=== PATIENT | male | born 1960 | race Caucasian/White ===

== ENCOUNTER → 2016-03-11 | Outpatient (CLI) | payer OTHER ==
[~2016-03-11] MED LIST: BCTRO EXT; DIME1CAP2 PO; DXY100 PO; MULT-513 PO; NXM/40 PO
[2016-03-11 12:38] LABS: THYROID STIMULATING HORMONE 5.01 uIu/ml (0.300-4.500)
== END | disposition home or self-care (01) ==
LOC: C.LAB1850 11:39
PROVIDERS: ATTEND Internal Medicine
DX: R94.6 Abnormal results of thyroid function studies (principal)

== ENCOUNTER 2016-07-25 21:14 | Inpatient (IN) | payer OTHER ==
[~2016-07-25] VITALS: Ht 188 cm; Wt 107.2 kg
[~2016-07-25 21:14] MED LIST changes: -BCTRO EXT; -DXY100 PO
[2016-07-25 23:47] LABS: BUN/CREATININE RATIO 13.3 (10-20); CALCIUM 8.4 mg/dl (8.5-10.1); CREATININE 1.1 mg/dl (0.60-1.40); POTASSIUM 3.9 mmol/L (3.5-5.1)
[2016-07-25 23:57] LABS: MEAN CELL VOLUME 87.8 fL (80-100); MEAN CORPUSCULAR HEMOGLOBIN 30.2 pg (25-34); MEAN CORPUSCULAR HGB CONC 34.4 g/dl (32-36); MEAN PLATELET VOLUME 11.7 fL (7.4-10.4); PLATELET COUNT 65 K/uL (130-400); RED BLOOD COUNT 4.44 M/uL (4.7-6.1); WHITE BLOOD COUNT 1.34 K/uL (4.8-10.8)
[2016-07-25 23:58] LABS: COMPLETE YES; GIANT PLATELETS 2+; LYMPH ABS # 0.25 K/uL (1.2-3.4); LYMPHOCYTE % 18.3 %; NEUTROPHILS % 76.5 %; PLT ESTIMATE DECREASED; TOXIC GRANULATION 1+
[2016-07-26 00:13] LABS: URINE APPEARANCE CLEAR (CLEAR); URINE BILIRUBIN NEG (NEG); URINE COLOR DK YELLOW; URINE NITRITE NEG (NEG); URINE SPECIFIC GRAVITY 1.025 (1.000-1.030); UROBILINOGEN NEG (NEG)
[2016-07-26 00:13] LABS: LYME DISEASE AB IGG NEG (NEG); LYME DISEASE AB IGM NEG (NEG)
[2016-07-26 00:14] LABS: MANUAL MICROSCOPIC REQUIRED? NO; REVIEW REQ? NO
[2016-07-26] MEDS ORDERED: CEFEPIME IV 2,000 MG in DEXTROSE 5% 100ML 100 ML IV STA (00:26)
--- NOTE | 2016-07-26 01:58 | EMERGENCY ROOM VISIT NOTE ---
History Report prepared by Maribel: Dominique Reed Under the Supervision of: Dr. Phuc Hollingsworth M.D. First contact with patient: 22:29 Chief Complaint: FEVER Stated Complaint: FEVER,WEAK,HEADACHE History of Present Illness The patient is a 56 year old male who presents to the Emergency Room with complaints of persistent fever starting 3 days ago. His temperature was 102.5 degrees today. He has been taking ibuprofen for the past 2 days. He took some today at 1630. He is currently feeling better than he has for the past 2 days. He reports chills. He has pain in the back of his neck and a headache in the back of his head which also started 3 days ago. The headache is mild and constant. He normally does not get headaches. He denies any neck stiffness, SOB , cough, chest pain, abdominal pain, urinary symptoms, rash, numbness, or weakness. He notes that he has been working outside a lot. 3-4 months ago he had a tick bite which was very embedded into his skin. He has not noticed any rash. He has a history of MS. He is currently not on any steroids or medications for MS. He denies any history of UTI. Source of History: patient Onset: 3 days ago Position: other (global) Symptom Intensity: 102.5 F Quality: other (fever) Timing: other (persistent) Associated Symptoms: + chills, + headache, + neck pain, No cough, No chest pain, No SOB, No abdominal pain, No urinary symptoms, No weakness, No numbness, No rash Note: Pt denies neck stiffness. Review of Systems See HPI for pertinent positives & negatives. A total of 10 systems reviewed and were otherwise negative. Past Medical & Surgical Medical Problems: (1) Multiple sclerosis Family History No pertinent family history stated. Social History Smoking Status: Current Every Day Smoker Occupation Status: employed Current/Historical Medications Scheduled Multivitamins/Minerals (Mvi With Minerals), 1 TAB PO DAILY Scheduled PRN Esomeprazole Magnesium (Nexium), 40 MG PO QAM PRN for Indigestion Allergies Coded Allergies: No Known Drug Allergy (Verified Allergy, Unknown, NKDA, 07/25/16) Physical Exam Vital Signs Date Time Temp Pulse Resp B/P (MAP) Pulse Ox O2 Delivery O2 Flow Rate FiO2 07/26/16 00:49 74 18 108/57 93 Room Air 07/25/16 23:04 37.5 84 18 115/67 94 Room Air 07/25/16 21:17 36.9 105 20 124/74 95 Room Air Physical Exam Constitutional: Vital signs reviewed. Eyes: Pupils are equal round reactive to light. Conjunctiva are noninjected. ENT: Pharynx is clear without erythema or exudate. Mucous membranes are moist. Neck supple without meningeal signs. Respiratory: Clear to auscultation bilaterally. Breath sounds are equal bilaterally. Cardiovascular: Regular rate and rhythm. No rubs or gallops. GI: Soft, nondistended and nontender. Bowel sounds are present. Musculoskeletal: No peripheral edema. No lower extremity tenderness. No CVA tenderness. Integumentary: No cyanosis. Neurologic: The patient is awake and alert. Cranial nerves II-XII are intact. Motor is 5 out of 5 all extremities. Sensation is intact to light touch all extremities. Normal speech. No pronator drift. Negative Kernig's sign. Negative Brudzinski's sign. Psychiatric: Normal affect. Medical Decision & Procedures ER Provider Diagnostic Interpretation: X-ray results as stated below per interpretation by me: Chest X-ray: No acute cardiopulmonary process. No pneumonia. Laboratory Results 07/25/16 23:00 Red Blood Count 4.44, Mean Corpuscular Volume 87.8, Mean Corpuscular Hemoglobin 30.2, Mean Corpuscular Hemoglobin Concent 34.4, Mean Platelet Volume 11.7 07/25/16 23:00 Test 07/25/16 23:00 07/25/16 23:55 07/26/16 00:28 07/26/16 00:40 White Blood Count 1.34 K/uL (4.8-10.8) Red Blood Count 4.44 M/uL (4.7-6.1) Hemoglobin 13.4 g/dL (14.0-18.0) Hematocrit 39.0 % (42-52) Mean Corpuscular Volume 87.8 fL (80-100) Mean Corpuscular Hemoglobin 30.2 pg (25-34) Mean Corpuscular Hemoglobin Concent 34.4 g/dl (32-36) Platelet Count 65 K/uL (130-400) Mean Platelet Volume 11.7 fL (7.4-10.4) RDW Standard Deviation 40.4 fL (36.4-46.3) RDW Coefficient of Variation 12.5 % (11.5-14.5) Neutrophils % (Manual) 76.5 % Lymphocytes % (Manual) 18.3 % Monocytes % (Manual) 5.2 % Neutrophils # (Manual) 1.03 K/uL (1.4-6.5) Total Absolute Neutrophils 1.03 K/uL (1.4-6.5) Lymphocytes # (Manual) 0.25 K/uL (1.2-3.4) Total Absolute Lymphocytes 0.25 K/uL (1.2-3.4) Monocytes # (Manual) 0.07 K/uL (0.11-0.59) Toxic Granulation 1+ Platelet Estimate DECREASED Giant Platelets 2+ Anion Gap 9.0 mmol/L (3-11) Est Creatinine Clear Calc Drug Dose 97.8 ml/min Estimated GFR () 86.5 Estimated GFR (Non- 74.6 BUN/Creatinine Ratio 13.3 (10-20) Calcium Level 8.4 mg/dl (8.5-10.1) Total Bilirubin 0.7 mg/dl (0.2-1) Direct Bilirubin 0.2 mg/dl (0-0.2) Aspartate Amino Transf (AST/SGOT) 37 U/L (15-37) Alanine Aminotransferase (ALT/SGPT) 32 U/L (12-78) Alkaline Phosphatase 67 U/L (45-117) Total Protein 6.7 gm/dl (6.4-8.2) Albumin 3.3 gm/dl (3.4-5.0) Lyme Disease IgG Antibody NEG (NEG) Lyme Disease IgM Antibody NEG (NEG) Urine Color DK YELLOW Urine Appearance CLEAR (CLEAR) Urine pH 6.0 (4.5-7.5) Urine Specific [place] 1.025 (1.000-1.030) Urine Protein TRACE (NEG) Urine Glucose (UA) NEG (NEG) Urine Ketones TRACE (NEG) Urine Occult Blood NEG (NEG) Urine Nitrite NEG (NEG) Urine Bilirubin NEG (NEG) Urine Urobilinogen NEG (NEG) Urine Leukocyte Esterase NEG (NEG) Urine WBC (Auto) 1-5 /hpf (0-5) Urine RBC (Auto) 0-4 /hpf (0-4) Urine Hyaline Casts (Auto) 1-5 /lpf (0-5) Urine Epithelial Cells (Auto) 5-10 /lpf (0-5) Urine Bacteria (Auto) NEG (NEG) Bedside Lactic Acid Venous 0.59 mmol/L (0.90-1.70) Influenza Type A Antigen Neg for Influ A (NEG) Influenza Type B Antigen Neg for Influ B (NEG) Test 07/26/16 01:18 Laboratory results as reviewed by me. Medications Administered Medications (Trade) Dose Ordered Sig/Hossein Route Start Time Stop Time Status Last Admin Dose Admin Cefepime HCl 2000 mg/Dextrose 122.6 ml @ 200 mls/hr NOW STAT IV 07/26/16 00:26 07/26/16 01:02 DC 07/26/16 00:48 200 MLS/HR ED Course 2231: The patient was evaluated in room C9. A complete history and physical exam was performed. 2358: I reevaluated the patient. I updated him on the test results so far. The urine dip was negative. 0019: I reevaluated the patient. He states he feels fine. I updated him on the results. He would not like to stay in the hospital. 0026: Cefepime HCl 2000 mg/Dextrose 122.6 ml @ 200 mls/hr IV. 0035: I reevaluated the patient. I discussed the results and treatment with him and his . They verbalized understanding and agreement. He has agreed to stay for further evaluation. 0115: I discussed the patient's case with Dr. Oscar, [facility] [place] hospitalist group. The patient will be evaluated for further management. Medical Decision This is a 56-year-old male who presents with fever and headache. Differential diagnosis includes sepsis, bacteremia, Lyme disease, meningitis, pneumonia, UTI , viral syndrome. I did perform a limited focused review of portions of the patient's old chart on the electronic medical record. The patient has had no recent pertinent visits to this hospital. Medication Reconciliation: I attest that I have personally reviewed the patient' s current medication list. Blood Pressure Screening: Patient was found to have an elevated blood pressure and was referred to their primary doctor for recheck and further treatment. I did evaluate the patient as noted above. The patient is presenting with a fever since Monday. He has also had a headache as well. On my examination he is neurologically intact and has no meningeal signs. He does state that he is feeling better overall today after taking Motrin. IV access was established. I did order and personally review the patient's urinalysis and chest x-ray as described above. He does not have a UTI or pneumonia. I did order and review the patient's blood work as noted in the electronic medical record. His lactic acid is negative. His white blood cell count and platelet count is low. He is neutropenic with an ANC of approximately thousand. His Lyme test was negative. I did discuss the test results with the patient and his . I did recommend hospitalization for further evaluation of his symptoms and IV antibiotics. I did treat him with cefepime IV. I did send a rapid flu test which is negative. I did send testing for ehrlichiosis and Anaplasma due to his history of tick bite. I did discuss the case with the hospitalist and assistant case manager. Consults Time Called: 0045 Consulting Physician: Dr. Oscar, [facility] [place] hospitalist group Returned Call: 0115 I discussed the patient's case with him. The patient will be evaluated for further management. Impression Primary Impression: Neutropenic fever Additional Impression: Thrombocytopenia Scribe Attestation The scribe's documentation has been prepared under my direct and personally reviewed by me in its entirety. I confirm that the note above accurately reflects all work, treatment, procedures, and medical decision making performed by me. Departure Information Dispostion Being Evaluated By Hospitalist Referrals RV. Beaver MD (PCP) Patient Instructions My [facility] Problem Qualifiers
[2016-07-26] MEDS ORDERED: ONDANSETRON INJ 2 MG/ML 2 ML VIAL IV PRN (03:30)
[2016-07-26] MEDS ORDERED: ACETAMINOPHEN 325 MG TAB PO PRN (03:30)
[2016-07-26] MEDS ORDERED: MAGNESIUM HYDROXIDE SUSP 30 ML UDC PO PRN (03:30)
--- NOTE | 2016-07-26 03:37 | History and Physical ---
History & Physical Date & Time of Service: Jul 26, 2016 at 03:35 Chief Complaint: Fever,Weak,Headache Primary Care Physician: RV. Beaver MD History of Present Illness Source: patient, spouse 56 y/o M with PMH of MS and hypothyroidism presented to the ER with c/o persistent fevers with chills which started about 3 days ago. complains of fevers with chills and sweats and had been suing ibuprofen intermittently. complains of a mild headache in the left frontal side and neck and back pain which he thinks is chronic . had some photophobia and lightheadedness which is now resolved denies any N/V/Diarrhea/abdominal pain/urinary complaints/rashes/sore throat or URTI s/s denies any bleeding from gums/melena/BRBPR had a tick bite about 4 months ago and had an engorged tick attached for about 3 -4 days. denied any rashes/joint pain. no recent travelling, exposure to sick contacts. 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 he recently stopped medications for MS. also concerned at he was stationed at [employer] and was potentially exposed to contaminated water. Past Medical/Surgical History Medical Problems: (1) Multiple sclerosis Status: Chronic Social History Smoking Status: Current Every Day Smoker Occupational Status: employed Multi-Drug Resistant Organisms History of MDRO: No Allergies Coded Allergies: No Known Drug Allergy (Verified Allergy, Unknown, NKDA, 07/25/16) Home Medications Scheduled Multivitamins/Minerals (Mvi With Minerals), 1 TAB PO DAILY Scheduled PRN Esomeprazole Magnesium (Nexium), 40 MG PO QAM PRN for Indigestion Review of Systems Constitutional: + fever, + chills, + sweats Eyes: No worsening of vision ENT: No hearing loss Respiratory: No cough, No sputum, No wheezing, No shortness of breath, No dyspnea on exertion Cardiovascular: No chest pain Abdomen: No pain, No nausea, No vomiting, No diarrhea, No GI bleeding Genitourinary - Male: No hematuria, No dysuria, No urinary frequency Neurologic: No memory loss Psychiatric: No depression symptoms Endocrine: No fatigue Hematologic / Lymphatic: No abnormal bleeding/bruising Integumentary: No rash Physical Exam Vital Signs Date Time Temp Pulse Resp B/P (MAP) Pulse Ox O2 Delivery O2 Flow Rate FiO2 07/26/16 02:30 77 18 121/70 95 Room Air 07/26/16 00:49 74 18 108/57 93 Room Air 07/25/16 23:04 37.5 84 18 115/67 94 Room Air 07/25/16 21:17 36.9 105 20 124/74 95 Room Air General Appearance: WD/WN, no apparent distress Head: normocephalic Eyes: normal inspection ENT: hearing grossly normal Neck: supple Respiratory/Chest: chest non-tender, lungs clear, normal breath sounds, no respiratory distress, no accessory muscle use Cardiovascular: regular rate, rhythm Abdomen/GI: normal bowel sounds, non tender, soft Extremities/Musculoskelatal: no calf tenderness, no pedal edema Neurologic/Psych: alert, normal mood/affect, oriented x 3 Skin: normal color, no rash Diagnostics Laboratory Results Results Past 24 Hours Test 07/25/16 23:00 07/25/16 23:55 07/26/16 00:28 07/26/16 00:40 Range/Units White Blood Count 1.34 4.8-10.8 K/uL Red Blood Count 4.44 4.7-6.1 M/uL Hemoglobin 13.4 14.0-18.0 g/dL Hematocrit 39.0 42-52 % Mean Corpuscular Volume 87.8 80-100 fL Mean Corpuscular Hemoglobin 30.2 25-34 pg Mean Corpuscular Hemoglobin Concent 34.4 32-36 g/dl Platelet Count 65 130-400 K/uL Mean Platelet Volume 11.7 7.4-10.4 fL RDW Standard Deviation 40.4 36.4-46.3 fL RDW Coefficient of Variation 12.5 11.5-14.5 % Neutrophils % (Manual) 76.5 % Lymphocytes % (Manual) 18.3 % Monocytes % (Manual) 5.2 % Neutrophils # (Manual) 1.03 1.4-6.5 K/uL Total Absolute Neutrophils 1.03 1.4-6.5 K/uL Lymphocytes # (Manual) 0.25 1.2-3.4 K/uL Total Absolute Lymphocytes 0.25 1.2-3.4 K/uL Monocytes # (Manual) 0.07 0.11-0.59 K/uL Toxic Granulation 1+ Platelet Estimate DECREASED Giant Platelets 2+ Sodium Level 140 136-145 mmol/L Potassium Level 3.9 3.5-5.1 mmol/L Chloride Level 104 98-107 mmol/L Carbon Dioxide Level 27 21-32 mmol/L Anion Gap 9.0 3-11 mmol/L Blood Urea Nitrogen 15 7-18 mg/dl Creatinine 1.10 0.60-1.40 mg/dl Est Creatinine Clear Calc Drug Dose 97.8 ml/min Estimated GFR () 86.5 Estimated GFR (Non- 74.6 BUN/Creatinine Ratio 13.3 10-20 Random Glucose 121 70-99 mg/dl Calcium Level 8.4 8.5-10.1 mg/dl Total Bilirubin 0.7 0.2-1 mg/dl Direct Bilirubin 0.2 0-0.2 mg/dl Aspartate Amino Transf (AST/SGOT) 37 15-37 U/L Alanine Aminotransferase (ALT/SGPT) 32 12-78 U/L Alkaline Phosphatase 67 45-117 U/L Total Protein 6.7 6.4-8.2 gm/dl Albumin 3.3 3.4-5.0 gm/dl Lyme Disease IgG Antibody NEG NEG Lyme Disease IgM Antibody NEG NEG Urine Color DK YELLOW Urine Appearance CLEAR CLEAR Urine pH 6.0 4.5-7.5 Urine Specific [place] 1.025 1.000-1.030 Urine Protein TRACE NEG Urine Glucose (UA) NEG NEG Urine Ketones TRACE NEG Urine Occult Blood NEG NEG Urine Nitrite NEG NEG Urine Bilirubin NEG NEG Urine Urobilinogen NEG NEG Urine Leukocyte Esterase NEG NEG Urine WBC (Auto) 1-5 0-5 /hpf Urine RBC (Auto) 0-4 0-4 /hpf Urine Hyaline Casts (Auto) 1-5 0-5 /lpf Urine Epithelial Cells (Auto) 5-10 0-5 /lpf Urine Bacteria (Auto) NEG NEG Bedside Lactic Acid Venous 0.59 0.90-1.70 mmol/L Influenza Type A Antigen Neg for Influ A NEG Influenza Type B Antigen Neg for Influ B NEG Test 07/26/16 01:18 Range/Units Microbiology Results 07/25/16 Blood Culture, Received Pending 07/25/16 Blood Culture, Received Pending Impression Assessment and Plan 56 y/o M with PMH of MS and hypothyroidism presented to the ER with c/o persistent fevers with chills which started about 3 days ago. Was found to have WBC count of 1.34 and thrombocytopenia with a platelet count of 65. Neutropenic fever: - WBC count of 1.34, ANC 1.03 - Blood cultures, urine cultures pending - Lactic acid at 0.59 - Lyme serology, influenza negative - Ehrlichiosis, anaplasmosis, EBV, parvovirus B19 serology pending - Received cefepime 2 g in the ER, continue cefepime 2 g every 8 hours - Infectious disease consult - Neutropenic precautions Thrombocytopenia with neutropenia: Bone marrow suppression secondary to infection versus multiple sclerosis drugs versus malignancy - Platelet count at 65 with no active bleeding - Studies as above - Hematology consult Multiple sclerosis:- Stable Was on Copaxone and Rebif and tecfidera which he is no longer using Hypothyroidism - Continue Synthroid 50 g GERD: -Continue esmoprazole DVT prophylaxis: SCDs Chemical anticoagulations avoided due to low platelets Full code Disposition: Admitted to [facility] with neutropenia precautions. Monitor platelet count Resident Physician Supervision Note: Pt seen/examined independently. I discussed the case with the resident and agree with the findings and plan as documented in the note. Any exceptions or clarifications are listed here: 56 y/o M Hx MS - recently stopped treatment but had been on various meds for several years. Presents with fever and mild FIGUEROA x 4 days. No readily apparent source. Initial labs reveal an ANC of 1000 and low platelet count OE AAO x 3 S1,2 R CTAB NT,ND, BS + No CCE No deficits P: Pt receiving broad spectrum coverage pending culture results Received dose of Cefepime - we will add a dose of Doxy as he states he had a tick bite a few months ago and Erlichiosis is in differential We will consult HO as he may have bone marrow suppression owing to MS treatment and may be more susceptible to CA Will test for EBV and Parvo as well Full code - SCDs Total time for this admit including review of labs, meds, records - discussion with pt and ER attending 38 min Documented By: Calos Oscar Level of Care Med/Surg Resuscitation Status FULL RESUSCITATION VTE Prophylaxis VTE Risk Assessment Done? Y/N: Yes Risk Level: High Given or contraindicated: SCD's Resident Tracking Resident Involvement: Resident Care Provided Care Provided: Adult Hospital Medicine
[2016-07-26] MEDS ORDERED: DOXYCYCLINE HYCLATE 100 MG CAP PO STA (03:42)
[2016-07-26 04:22] VITALS: BP 137/82; PULSE 77; TEMP 37.2; O2SAT 95; Ht 188 cm; Wt 107.2 kg
[2016-07-26 04:35] VITALS: BP 137/82; PULSE 77; TEMP 37.2; O2SAT 95
[2016-07-26] MEDS: LEVOTHYROXINE 50 MCG TAB PO SCH (05:16)
[2016-07-26] MEDS: SODIUM CHLORIDE 0.9% 1000ML 1,000 ML IV SCH ×3 (05:17→19:44)
--- NOTE | 2016-07-26 06:30 | DIAGNOSTIC IMAGING REPORT ---
CHEST 2 VIEWS ROUTINE CLINICAL HISTORY: Fever. Headache. COMPARISON STUDY: 07/03/2015 FINDINGS: The cardiac and mediastinal contours are normal. There is no evidence of focal pulmonary consolidation. There is no evidence of failure. No pleural effusions are visualized.[ Surgical clips project over the right axillary region. IMPRESSION: No active disease in the chest. Electronically signed by: Jeovanny Jacob M.D. 07/26/2016 6:28 AM Dictated Date/Time: 07/26/2016 6:28 AM
[2016-07-26 07:40] VITALS: BP 113/72; PULSE 73; TEMP 36.7; O2SAT 93
[2016-07-26] MEDS ORDERED: PANTOprazole SOD 40 MG TAB PO PRN (08:00)
[2016-07-26] MEDS: CEFEPIME IV 2,000 MG in DEXTROSE 5% 100ML 100 ML IV SCH ×3 (08:37→23:56)
[2016-07-26 09:31] LABS: INR 1.1 (0.9-1.1); PARTIAL THROMBOPLASTIN RATIO 1.1; PROTHROMBIN TIME (PATIENT) 11.3 SECONDS (9.0-12.0)
[2016-07-26 09:40] LABS: HEMATOCRIT 40.2 % (42-52); MEAN CORPUSCULAR HEMOGLOBIN 29.7 pg (25-34); MEAN CORPUSCULAR HGB CONC 34.1 g/dl (32-36); MEAN PLATELET VOLUME 10.9 fL (7.4-10.4); PLATELET COUNT 65 K/uL (130-400); RED BLOOD COUNT 4.62 M/uL (4.7-6.1); WHITE BLOOD COUNT 1.22 K/uL (4.8-10.8)
[2016-07-26 09:52] LABS: COMPLETE YES; IG% 0.8 %; LYMPH % 29.5 %; LYMPH ABS # 0.36 K/uL (1.2-3.4); MONO % 8.2 %; NEUT % 61.5 %
--- NOTE | 2016-07-26 10:01 | Medical Consult ---
Consultation Date of Consultation: Jul 26, 2016. Attending Physician: Cong Chen MD Reason for Consultation: Neutropenic fever History of Present Illness 56-year-old male with history of multiple sclerosis and hypothyroidism, but otherwise in good health, was well until approximately 4 days ago when he noted the onset of fever, chills, muscle and joint aches and pains, weakness and fatigue. Symptoms progressively worsened over the next several days and fever went as high as 102.5. he came to the emergency department where he was found to have significant neutropenia and thrombocytopenia and was admitted to the hospital for further management. He has been started empirically on IV cefepime. He has history of multiple tick exposures, initial Lyme serology negative. Chest x-ray, read by me, shows no evidence of acute process. Liver enzymes are normal. Patient concerned because he was stationed at [place] where there been cases of significant hematologic illness potentially associated with contaminated water. No other significant travel or exposure history. Past Medical/Surgical History Medical Problems: (1) Neutropenic fever Status: Acute (2) Thrombocytopenia Status: Acute Medical Problems: (1) Multiple sclerosis Family History Noncontributory Social History Smoking Status: Current Every Day Smoker Occupation Status: employed Allergies Coded Allergies: No Known Drug Allergy (Verified Allergy, Unknown, NKDA, 07/25/16) Current Inpatient Medications Current Inpatient Medications Medications (Trade) Dose Ordered Sig/Hossein Route Start Time Stop Time Status Last Admin Dose Admin Acetaminophen (Tylenol Tab) 650 mg Q4H PRN PO 07/26/16 03:30 08/25/16 03:29 07/26/16 05:16 650 MG Magnesium Hydroxide (Milk Of Magnesia Susp) 30 ml Q6H PRN PO 07/26/16 03:30 08/25/16 03:29 Ondansetron HCl (Zofran Inj) 4 mg Q6H PRN IV 07/26/16 03:30 08/25/16 03:29 Pantoprazole Sodium (Protonix Tab) 40 mg DAILY PRN PO 07/26/16 08:00 08/25/16 07:59 Cefepime HCl 2000 mg/Dextrose 112.5 ml @ 200 mls/hr Q8H IV 07/26/16 08:00 07/28/16 07:59 07/26/16 08:37 200 MLS/HR Sodium Chloride 1,000 ml @ 125 mls/hr Q8H IV 07/26/16 04:45 08/25/16 04:44 07/26/16 05:17 125 MLS/HR Levothyroxine Sodium (Synthroid Tab) 50 mcg DAILYBB PO 07/26/16 06:30 08/25/16 06:29 07/26/16 05:16 50 MCG Review of Systems Constitutional: + fever, + chills, + sweats, + weakness Eyes: No problem reported ENT: No problem reported Respiratory: No problem reported Cardiovascular: No problem reported Abdomen: No problem reported Musculoskeletal: + joint pain, + muscle pain Genitourinary - Male: No problem reported Neurologic: No problem reported Psychiatric: No problem reported Endocrine: No problem reported Hematologic / Lymphatic: No problem reported Integumentary: No problem reported Allergic / Immunologic: No problem reported Physical Exam Date Time Temp Pulse Resp B/P (MAP) Pulse Ox O2 Delivery O2 Flow Rate FiO2 07/26/16 07:40 36.7 73 18 113/72 (86) 93 Room Air 07/26/16 04:35 37.2 77 18 137/82 (100) 95 Room Air 07/26/16 04:22 37.2 77 18 137/82 95 Room Air 07/26/16 04:11 86 16 137/76 98 07/26/16 02:30 77 18 121/70 95 Room Air 07/26/16 00:49 74 18 108/57 93 Room Air 07/25/16 23:04 37.5 84 18 115/67 94 Room Air 07/25/16 21:17 36.9 105 20 124/74 95 Room Air General Appearance: WD/WN, no apparent distress Head: normocephalic, atraumatic Eyes: normal inspection, EOMI, sclerae normal ENT: normal ENT inspection, hearing grossly normal, pharynx normal Neck: supple, no adenopathy, thyroid normal, trachea midline Respiratory/Chest: chest non-tender, lungs clear, normal breath sounds, no respiratory distress Cardiovascular: regular rate, rhythm, no gallop, no murmur Abdomen/GI: normal bowel sounds, non tender, soft, no organomegaly Back: normal inspection, no CVA tenderness Extremities/Musculoskelatal: no calf tenderness, non-tender Neurologic/Psych: alert, normal mood/affect, oriented x 3 Skin: normal color, warm/dry, no rash Lymphatic: no adenopathy Laboratory Results Date/Time Source Procedure Growth Status 07/25/16 23:22 Blood Blood Culture Pending Received 07/25/16 23:00 Blood Blood Culture Pending Received Last 24 Hours Test 07/25/16 23:00 07/25/16 23:55 07/26/16 00:28 07/26/16 00:40 White Blood Count 1.34 K/uL Red Blood Count 4.44 M/uL Hemoglobin 13.4 g/dL Hematocrit 39.0 % Mean Corpuscular Volume 87.8 fL Mean Corpuscular Hemoglobin 30.2 pg Mean Corpuscular Hemoglobin Concent 34.4 g/dl Platelet Count 65 K/uL Mean Platelet Volume 11.7 fL RDW Standard Deviation 40.4 fL RDW Coefficient of Variation 12.5 % Neutrophils % (Manual) 76.5 % Lymphocytes % (Manual) 18.3 % Monocytes % (Manual) 5.2 % Neutrophils # (Manual) 1.03 K/uL Total Absolute Neutrophils 1.03 K/uL Lymphocytes # (Manual) 0.25 K/uL Total Absolute Lymphocytes 0.25 K/uL Monocytes # (Manual) 0.07 K/uL Toxic Granulation 1+ Platelet Estimate DECREASED Giant Platelets 2+ Sodium Level 140 mmol/L Potassium Level 3.9 mmol/L Chloride Level 104 mmol/L Carbon Dioxide Level 27 mmol/L Anion Gap 9.0 mmol/L Blood Urea Nitrogen 15 mg/dl Creatinine 1.10 mg/dl Est Creatinine Clear Calc Drug Dose 97.8 ml/min Estimated GFR () 86.5 Estimated GFR (Non- 74.6 BUN/Creatinine Ratio 13.3 Random Glucose 121 mg/dl Calcium Level 8.4 mg/dl Total Bilirubin 0.7 mg/dl Direct Bilirubin 0.2 mg/dl Aspartate Amino Transf (AST/SGOT) 37 U/L Alanine Aminotransferase (ALT/SGPT) 32 U/L Alkaline Phosphatase 67 U/L Total Protein 6.7 gm/dl Albumin 3.3 gm/dl Lyme Disease IgG Antibody NEG Lyme Disease IgM Antibody NEG Urine Color DK YELLOW Urine Appearance CLEAR Urine pH 6.0 Urine Specific [place] 1.025 Urine Protein TRACE Urine Glucose (UA) NEG Urine Ketones TRACE Urine Occult Blood NEG Urine Nitrite NEG Urine Bilirubin NEG Urine Urobilinogen NEG Urine Leukocyte Esterase NEG Urine WBC (Auto) 1-5 /hpf Urine RBC (Auto) 0-4 /hpf Urine Hyaline Casts (Auto) 1-5 /lpf Urine Epithelial Cells (Auto) 5-10 /lpf Urine Bacteria (Auto) NEG Bedside Lactic Acid Venous 0.59 mmol/L Influenza Type A Antigen Neg for Influ A Influenza Type B Antigen Neg for Influ B Test 07/26/16 01:18 07/26/16 09:13 White Blood Count 1.22 K/uL Red Blood Count 4.62 M/uL Hemoglobin 13.7 g/dL Hematocrit 40.2 % Mean Corpuscular Volume 87.0 fL Mean Corpuscular Hemoglobin 29.7 pg Mean Corpuscular Hemoglobin Concent 34.1 g/dl Platelet Count 65 K/uL Mean Platelet Volume 10.9 fL Neutrophils (%) (Auto) 61.5 % Lymphocytes (%) (Auto) 29.5 % Monocytes (%) (Auto) 8.2 % Eosinophils (%) (Auto) 0.0 % Basophils (%) (Auto) 0.0 % Neutrophils # (Auto) 0.75 K/uL Lymphocytes # (Auto) 0.36 K/uL Monocytes # (Auto) 0.10 K/uL Eosinophils # (Auto) 0.00 K/uL Basophils # (Auto) 0.00 K/uL RDW Standard Deviation 40.2 fL RDW Coefficient of Variation 12.5 % Immature Granulocyte % (Auto) 0.8 % Immature Granulocyte # (Auto) 0.01 K/uL Red Blood Cell Morphology Unremarkable Prothrombin Time 11.3 SECONDS Prothromb Time International Ratio 1.1 Activated Partial Thromboplast Time 27.5 SECONDS Partial Thromboplastin Ratio 1.1 [~ rep ct add3]] CHEST 2 VIEWS ROUTINE CLINICAL HISTORY: Fever. Headache. COMPARISON STUDY: 07/03/2015 FINDINGS: The cardiac and mediastinal contours are normal. There is no evidence of focal pulmonary consolidation. There is no evidence of failure. No pleural effusions are visualized.[ Surgical clips project over the right axillary region. IMPRESSION: No active disease in the chest. Electronically signed by: Jeovanny Jacob M.D. 07/26/2016 6:28 AM Dictated Date/Time: 07/26/2016 6:28 AM The status of this report is Signed. Draft = Not yet reviewed or approved by Radiologist. Signed = Reviewed and approved by Radiologist. <AttendingPhy>Calos Oscar M.D.</AttendingPhy> <FamilyPhy>RV. Beaver MD</FamilyPhy> <PrimaryPhy>RV. Beaver MD</PrimaryPhy> < UnitNumber>[id number]</UnitNumber> <VisitNumber>[id number]</VisitNumber> < PatientName>JAMIE LYLES JR</PatientName> <DateOfBirth>1960</ DateOfBirth Assessment & Plan 56-year-old male with multiple sclerosis and hypothyroidism, but otherwise in good health presents with relatively acute onset of fever associated with significant neutropenia and thrombocytopenia. Given potential tick exposure, anaplasmosis certainly a distinct possibility. Other viral infections such as parvovirus or EBV also possible. There have been cases of leukemia an aplastic anemia associated potentially with exposure to contaminated water at [place], and Hematology consult has been requested. For now, I agree with empiric use of cefepime for neutropenic fever, and have added doxycycline to cover potential of anaplasma infection. Will follow.
[2016-07-26 14:50] LABS: PLATELET COUNT 55 K/uL (130-400)
[2016-07-26 15:10] VITALS: BP 112/73; PULSE 73; TEMP 37.2; O2SAT 95
--- NOTE | 2016-07-26 16:10 | Oncology Consultation ---
Oncology/Heme Consultation Date of Consultation: Jul 26, 2016. Attending Physician: Cong Chen MD Reason for Consultation: Fevers Neutropenia and thrombocytopenia History of Present Illness Mr. Valentino is an otherwise healthy 56 year old man with a history of MS, though he has not been on active treatment in a year and a half. He began to have flu- like symptoms late last week and over the weekend became intermittently febrile. By yesterday, he was fatigued, achy, and weak and had a temp over 102, so he decided to proceed to the ER. Here, he was noted to be febrile, thrombocytopenic, and leukocytopenic/borderline neutropenic. Cultures were drawn and he was started on cefepime for febrile neutropenia. He was seen by ID earlier, who recommended adding doxycycline for tick-borne illness. [place] and has found ticks on himself in the past, though the most recent exposure that he is aware of was a few months ago. He denies any rashes, swollen lymph nodes, anorexia, weight loss, or abnormal bleeding or bruising. He denies any new sexual contacts, IV drug use, or prior exposure to HIV or hepatitis. He also denies starting any new medications recently. Past Medical/Surgical History Medical Problems: (1) Neutropenic fever Status: Acute (2) Thrombocytopenia Status: Acute Social History Smoking Status: Current Every Day Smoker Occupation Status: employed Allergies Coded Allergies: No Known Drug Allergy (Verified Allergy, Unknown, NKDA, 07/25/16) Home Medications Scheduled Multivitamins/Minerals (Mvi With Minerals), 1 TAB PO DAILY Scheduled PRN Esomeprazole Magnesium (Nexium), 40 MG PO QAM PRN for Indigestion Current Inpatient Medications Current Inpatient Medications Medications (Trade) Dose Ordered Sig/Hossein Route Start Time Stop Time Status Last Admin Dose Admin Acetaminophen (Tylenol Tab) 650 mg Q4H PRN PO 07/26/16 03:30 08/25/16 03:29 07/26/16 05:16 650 MG Magnesium Hydroxide (Milk Of Magnesia Susp) 30 ml Q6H PRN PO 07/26/16 03:30 08/25/16 03:29 Ondansetron HCl (Zofran Inj) 4 mg Q6H PRN IV 07/26/16 03:30 08/25/16 03:29 Pantoprazole Sodium (Protonix Tab) 40 mg DAILY PRN PO 07/26/16 08:00 08/25/16 07:59 Cefepime HCl 2000 mg/Dextrose 112.5 ml @ 200 mls/hr Q8H IV 07/26/16 08:00 07/28/16 07:59 07/26/16 08:37 200 MLS/HR Sodium Chloride 1,000 ml @ 125 mls/hr Q8H IV 07/26/16 04:45 08/25/16 04:44 07/26/16 13:56 125 MLS/HR Levothyroxine Sodium (Synthroid Tab) 50 mcg DAILYBB PO 07/26/16 06:30 08/25/16 06:29 07/26/16 05:16 50 MCG Doxycycline Hyclate (Vibramycin Cap) 100 mg BID PO 07/26/16 20:00 08/05/16 19:59 Review of Systems Constitutional: + fever, + chills, + sweats, + fatigue Eyes: No worsening of vision ENT: No unusual epistaxis, No sore throat Respiratory: No cough, No shortness of breath, No hemoptysis Cardiovascular: No chest pain Abdomen: No pain, No nausea, No diarrhea Musculoskeletal: + muscle pain Genitourinary - Male: No hematuria, No dysuria Neurologic: No weakness, No numbness/tingling Hematologic / Lymphatic: No abnormal bleeding/bruising, No swollen lymph nodes Integumentary: No rash Physical Exam Date Time Temp Pulse Resp B/P (MAP) Pulse Ox O2 Delivery O2 Flow Rate FiO2 07/26/16 15:51 Room Air 07/26/16 15:10 37.2 73 18 112/73 (86) 95 Room Air 07/26/16 08:40 Room Air 07/26/16 07:40 36.7 73 18 113/72 (86) 93 Room Air 07/26/16 04:35 37.2 77 18 137/82 (100) 95 Room Air 07/26/16 04:22 37.2 77 18 137/82 95 Room Air 07/26/16 04:11 86 16 137/76 98 07/26/16 02:30 77 18 121/70 95 Room Air 07/26/16 00:49 74 18 108/57 93 Room Air 07/25/16 23:04 37.5 84 18 115/67 94 Room Air 07/25/16 21:17 36.9 105 20 124/74 95 Room Air General Appearance: WD/WN, no apparent distress Eyes: EOMI, sclerae normal (anicteric) ENT: pharynx normal Respiratory/Chest: lungs clear, no respiratory distress Cardiovascular: regular rate, rhythm, no edema Abdomen/GI: non tender, soft, no organomegaly Extremities/Musculoskelatal: no calf tenderness, no pedal edema Neurologic/Psych: no motor/sensory deficits, alert, oriented x 3 Skin: warm/dry, no rash Lymphatic: no adenopathy Laboratory Results Last 24 Hours Test 07/25/16 23:00 07/25/16 23:55 07/26/16 00:00 07/26/16 00:28 White Blood Count 1.34 K/uL Red Blood Count 4.44 M/uL Hemoglobin 13.4 g/dL Hematocrit 39.0 % Mean Corpuscular Volume 87.8 fL Mean Corpuscular Hemoglobin 30.2 pg Mean Corpuscular Hemoglobin Concent 34.4 g/dl Platelet Count 65 K/uL Mean Platelet Volume 11.7 fL RDW Standard Deviation 40.4 fL RDW Coefficient of Variation 12.5 % Neutrophils % (Manual) 76.5 % Lymphocytes % (Manual) 18.3 % Monocytes % (Manual) 5.2 % Neutrophils # (Manual) 1.03 K/uL Total Absolute Neutrophils 1.03 K/uL Lymphocytes # (Manual) 0.25 K/uL Total Absolute Lymphocytes 0.25 K/uL Monocytes # (Manual) 0.07 K/uL Toxic Granulation 1+ Platelet Estimate DECREASED Giant Platelets 2+ Peripheral Blood Smear Path Consult Sodium Level 140 mmol/L Potassium Level 3.9 mmol/L Chloride Level 104 mmol/L Carbon Dioxide Level 27 mmol/L Anion Gap 9.0 mmol/L Blood Urea Nitrogen 15 mg/dl Creatinine 1.10 mg/dl Est Creatinine Clear Calc Drug Dose 97.8 ml/min Estimated GFR () 86.5 Estimated GFR (Non- 74.6 BUN/Creatinine Ratio 13.3 Random Glucose 121 mg/dl Calcium Level 8.4 mg/dl Total Bilirubin 0.7 mg/dl Direct Bilirubin 0.2 mg/dl Aspartate Amino Transf (AST/SGOT) 37 U/L Alanine Aminotransferase (ALT/SGPT) 32 U/L Alkaline Phosphatase 67 U/L Total Protein 6.7 gm/dl Albumin 3.3 gm/dl Lyme Disease IgG Antibody NEG Lyme Disease IgM Antibody NEG Urine Color DK YELLOW Urine Appearance CLEAR Urine pH 6.0 Urine Specific Nettie 1.025 Urine Protein TRACE Urine Glucose (UA) NEG Urine Ketones TRACE Urine Occult Blood NEG Urine Nitrite NEG Urine Bilirubin NEG Urine Urobilinogen NEG Urine Leukocyte Esterase NEG Urine WBC (Auto) 1-5 /hpf Urine RBC (Auto) 0-4 /hpf Urine Hyaline Casts (Auto) 1-5 /lpf Urine Epithelial Cells (Auto) 5-10 /lpf Urine Bacteria (Auto) NEG Bedside Lactic Acid Venous 0.59 mmol/L Test 07/26/16 00:40 07/26/16 09:13 07/26/16 14:27 Influenza Type A Antigen Neg for Influ A Influenza Type B Antigen Neg for Influ B White Blood Count 1.22 K/uL Red Blood Count 4.62 M/uL Hemoglobin 13.7 g/dL Hematocrit 40.2 % Mean Corpuscular Volume 87.0 fL Mean Corpuscular Hemoglobin 29.7 pg Mean Corpuscular Hemoglobin Concent 34.1 g/dl Platelet Count 65 K/uL 55 K/uL Mean Platelet Volume 10.9 fL Neutrophils (%) (Auto) 61.5 % Lymphocytes (%) (Auto) 29.5 % Monocytes (%) (Auto) 8.2 % Eosinophils (%) (Auto) 0.0 % Basophils (%) (Auto) 0.0 % Neutrophils # (Auto) 0.75 K/uL Lymphocytes # (Auto) 0.36 K/uL Monocytes # (Auto) 0.10 K/uL Eosinophils # (Auto) 0.00 K/uL Basophils # (Auto) 0.00 K/uL RDW Standard Deviation 40.2 fL RDW Coefficient of Variation 12.5 % Immature Granulocyte % (Auto) 0.8 % Immature Granulocyte # (Auto) 0.01 K/uL Red Blood Cell Morphology Unremarkable Prothrombin Time 11.3 SECONDS Prothromb Time International Ratio 1.1 Activated Partial Thromboplast Time 27.5 SECONDS Partial Thromboplastin Ratio 1.1 Assessment & Plan Mr. Valentino presents with an acute febrile illness complicated by very mild anemia and more severe thrombocytopenia and leukocytopenia with borderline neutropenia. I reviewed his smear personally. He has a left shift with increased bands but no other immature white cell forms. No WBC inclusions were noted. He did have some atypical lymphocytes. His RBCs are normal in number and morphology, with no evidence of schistocytes. His platelets are reduced in number with no evidence of platelet clumping. He denies any new medications or supplements. He has no recent STI exposures that he is aware of. He has no lymphadenopathy or other chronic symptoms to suggest a hematologic malignancy. His peripheral counts and smear review are not consistent with acute leukemia. Overall, I strongly suspect he has an infectious etiology, either a tick-borne illness (erlichia or anasplasma) or a viral illness (CMV, EBV, mono). Serologies for some of these are pending. Despite his lack of obvious exposure history, testing for HIV and viral hepatitis is quick and these are can't-miss diagnoses, so I would suggest screening for them. If he is not improving with empiric therapy and/or if his serologies are negative, I would consider a bone marrow biopsy. I would continue cefepime for now, given his febrile neutropenia. However, we can narrow to a more specific therapy if an etiology is identified.
--- NOTE | 2016-07-26 19:27 | Family Medicine Progress Note ---
Progress Note Date of Service Jul 26, 2016. Subjective Pt evaluation today including: conversation w/ patient, conversation w/ family , physical exam, conversation w/ talent development consultant, review of inpatient medication list Pain: none PO Intake: good Voiding: no voiding problems Patient with no acute events overnight Patient is feeling much better. Is having intermittent sweats but otherwise feels great. He denies any chest pain, shob, dysuria, haematuria, nausea, vomiting, diarrhea , constipation, ab pain, joint pain, rashes Additional Comments: Please see note for ROS Medications Current Inpatient Medications Medications (Trade) Dose Ordered Sig/Hossein Route Start Time Stop Time Status Last Admin Dose Admin Acetaminophen (Tylenol Tab) 650 mg Q4H PRN PO 07/26/16 03:30 08/25/16 03:29 07/26/16 05:16 650 MG Magnesium Hydroxide (Milk Of Magnesia Susp) 30 ml Q6H PRN PO 07/26/16 03:30 08/25/16 03:29 Ondansetron HCl (Zofran Inj) 4 mg Q6H PRN IV 07/26/16 03:30 08/25/16 03:29 Pantoprazole Sodium (Protonix Tab) 40 mg DAILY PRN PO 07/26/16 08:00 08/25/16 07:59 Cefepime HCl 2000 mg/Dextrose 112.5 ml @ 200 mls/hr Q8H IV 07/26/16 08:00 07/28/16 07:59 07/26/16 16:20 200 MLS/HR Sodium Chloride 1,000 ml @ 125 mls/hr Q8H IV 07/26/16 04:45 08/25/16 04:44 07/26/16 13:56 125 MLS/HR Levothyroxine Sodium (Synthroid Tab) 50 mcg DAILYBB PO 07/26/16 06:30 08/25/16 06:29 07/26/16 05:16 50 MCG Doxycycline Hyclate (Vibramycin Cap) 100 mg BID PO 07/26/16 20:00 08/05/16 19:59 Objective Vital Signs Date Time Temp Pulse Resp B/P (MAP) Pulse Ox O2 Delivery O2 Flow Rate FiO2 07/26/16 15:51 Room Air 07/26/16 15:10 37.2 73 18 112/73 (86) 95 Room Air 07/26/16 08:40 Room Air 07/26/16 07:40 36.7 73 18 113/72 (86) 93 Room Air 07/26/16 04:35 37.2 77 18 137/82 (100) 95 Room Air 07/26/16 04:22 37.2 77 18 137/82 95 Room Air 07/26/16 04:11 86 16 137/76 98 07/26/16 02:30 77 18 121/70 95 Room Air 07/26/16 00:49 74 18 108/57 93 Room Air 07/25/16 23:04 37.5 84 18 115/67 94 Room Air 07/25/16 21:17 36.9 105 20 124/74 95 Room Air Physical Exam General Appearance: WD/WN, no apparent distress ENT: hearing grossly normal, pharynx normal, + pertinent finding ( submandibular lymphadenopathy, as well as enlarged node under right armpit and enlarged node in left groin) Neck: supple, thyroid normal, no JVD, no carotid bruits Respiratory/Chest: chest non-tender, no respiratory distress, no accessory muscle use, + wheezing (left sided wheezes) Cardiovascular: regular rate, rhythm, no edema, no gallop, no murmur Abdomen: normal bowel sounds, non tender, soft Extremities: non-tender, no pedal edema, no calf tenderness, normal capillary refill Neurologic/Psychiatric: alert, oriented x 3 Skin: normal color, warm/dry, no rash Laboratory Results Results Past 24 Hours Test 07/25/16 23:00 07/25/16 23:55 07/26/16 00:00 07/26/16 00:28 Range/Units White Blood Count 1.34 4.8-10.8 K/uL Red Blood Count 4.44 4.7-6.1 M/uL Hemoglobin 13.4 14.0-18.0 g/dL Hematocrit 39.0 42-52 % Mean Corpuscular Volume 87.8 80-100 fL Mean Corpuscular Hemoglobin 30.2 25-34 pg Mean Corpuscular Hemoglobin Concent 34.4 32-36 g/dl Platelet Count 65 130-400 K/uL Mean Platelet Volume 11.7 7.4-10.4 fL RDW Standard Deviation 40.4 36.4-46.3 fL RDW Coefficient of Variation 12.5 11.5-14.5 % Neutrophils % (Manual) 76.5 % Lymphocytes % (Manual) 18.3 % Monocytes % (Manual) 5.2 % Neutrophils # (Manual) 1.03 1.4-6.5 K/uL Total Absolute Neutrophils 1.03 1.4-6.5 K/uL Lymphocytes # (Manual) 0.25 1.2-3.4 K/uL Total Absolute Lymphocytes 0.25 1.2-3.4 K/uL Monocytes # (Manual) 0.07 0.11-0.59 K/uL Toxic Granulation 1+ Platelet Estimate DECREASED Giant Platelets 2+ Peripheral Blood Smear Path Consult Sodium Level 140 136-145 mmol/L Potassium Level 3.9 3.5-5.1 mmol/L Chloride Level 104 98-107 mmol/L Carbon Dioxide Level 27 21-32 mmol/L Anion Gap 9.0 3-11 mmol/L Blood Urea Nitrogen 15 7-18 mg/dl Creatinine 1.10 0.60-1.40 mg/dl Est Creatinine Clear Calc Drug Dose 97.8 ml/min Estimated GFR () 86.5 Estimated GFR (Non- 74.6 BUN/Creatinine Ratio 13.3 10-20 Random Glucose 121 70-99 mg/dl Calcium Level 8.4 8.5-10.1 mg/dl Total Bilirubin 0.7 0.2-1 mg/dl Direct Bilirubin 0.2 0-0.2 mg/dl Aspartate Amino Transf (AST/SGOT) 37 15-37 U/L Alanine Aminotransferase (ALT/SGPT) 32 12-78 U/L Alkaline Phosphatase 67 45-117 U/L Total Protein 6.7 6.4-8.2 gm/dl Albumin 3.3 3.4-5.0 gm/dl Lyme Disease IgG Antibody NEG NEG Lyme Disease IgM Antibody NEG NEG Urine Color DK YELLOW Urine Appearance CLEAR CLEAR Urine pH 6.0 4.5-7.5 Urine Specific [place] 1.025 1.000-1.030 Urine Protein TRACE NEG Urine Glucose (UA) NEG NEG Urine Ketones TRACE NEG Urine Occult Blood NEG NEG Urine Nitrite NEG NEG Urine Bilirubin NEG NEG Urine Urobilinogen NEG NEG Urine Leukocyte Esterase NEG NEG Urine WBC (Auto) 1-5 0-5 /hpf Urine RBC (Auto) 0-4 0-4 /hpf Urine Hyaline Casts (Auto) 1-5 0-5 /lpf Urine Epithelial Cells (Auto) 5-10 0-5 /lpf Urine Bacteria (Auto) NEG NEG Bedside Lactic Acid Venous 0.59 0.90-1.70 mmol/L Test 07/26/16 00:40 07/26/16 09:13 07/26/16 14:27 07/26/16 19:18 Range/Units Influenza Type A Antigen Neg for Influ A NEG Influenza Type B Antigen Neg for Influ B NEG White Blood Count 1.22 4.8-10.8 K/uL Red Blood Count 4.62 4.7-6.1 M/uL Hemoglobin 13.7 14.0-18.0 g/dL Hematocrit 40.2 42-52 % Mean Corpuscular Volume 87.0 80-100 fL Mean Corpuscular Hemoglobin 29.7 25-34 pg Mean Corpuscular Hemoglobin Concent 34.1 32-36 g/dl Platelet Count 65 55 130-400 K/uL Mean Platelet Volume 10.9 7.4-10.4 fL Neutrophils (%) (Auto) 61.5 % Lymphocytes (%) (Auto) 29.5 % Monocytes (%) (Auto) 8.2 % Eosinophils (%) (Auto) 0.0 % Basophils (%) (Auto) 0.0 % Neutrophils # (Auto) 0.75 1.4-6.5 K/uL Lymphocytes # (Auto) 0.36 1.2-3.4 K/uL Monocytes # (Auto) 0.10 0.11-0.59 K/uL Eosinophils # (Auto) 0.00 0-0.5 K/uL Basophils # (Auto) 0.00 0-0.2 K/uL RDW Standard Deviation 40.2 36.4-46.3 fL RDW Coefficient of Variation 12.5 11.5-14.5 % Immature Granulocyte % (Auto) 0.8 % Immature Granulocyte # (Auto) 0.01 0.00-0.02 K/uL Red Blood Cell Morphology Unremarkable Prothrombin Time 11.3 9.0-12.0 SECONDS Prothromb Time International Ratio 1.1 0.9-1.1 Activated Partial Thromboplast Time 27.5 21.0-31.0 SECONDS Partial Thromboplastin Ratio 1.1 Microbiology Results 07/25/16 Blood Culture, Received Pending 07/25/16 Blood Culture, Received Pending Assessment and Plan 56 y/o M with PMH of MS and hypothyroidism presented to the ER with c/o persistent fevers with chills which started about 3 days ago. Was found to have WBC count of 1.34 and thrombocytopenia with a platelet count of 65. Neutropenic fever: - WBC count of 1.2 - Blood cultures, urine cultures pending - Lactic acid at 0.59 - Lyme serology, influenza negative - Ehrlichiosis, anaplasmosis, EBV, parvovirus B19 serology pending, added HIV, hepatitis panel and CMV - Cefepime 2 g every 8 hours and doxy added for tick born illness' - Infectious disease consult - Neutropenic precautions Thrombocytopenia with neutropenia: Bone marrow suppression secondary to infection versus multiple sclerosis drugs versus malignancy - Platelet count at 65 with no active bleeding - Hematology consult Multiple sclerosis:- Stable Was on Copaxone and Rebif and tecfidera which he is no longer using Hypothyroidism - Continue Synthroid 50 g GERD: -Continue esmoprazole DVT prophylaxis: SCDs Chemical anticoagulations avoided due to low platelets Full code Resident Physician Supervision Note: I was present with PGY1 Dr. Yaya Bey during the history and exam. I discussed the case with the resident and agree with the findings and plan as documented in the note. Any exceptions or clarifications are listed here: none. Pt already feeling better today; no fever since admission. Denies any new complaints VSS no fever this am gen - nad, nontoxic neck - cervical lymphadenopathy b/l mouth - MMM heart - RRR lungs - CTA b/l abd - soft, no HSM ext - no edema lymph - inguinal node left groin, about 1cm; right axillary node, about 1cm labs - ANC 750 platelets 65 leukopenic Cr normal A/P: febrile illness leukopenia, neutropenia, thrombocytopenia top on differential - tick-borne disease vs viral process; doubt primary hematological malignancy; autoimmune is also possible agree with doxy agree with cefepime serial labs await viral/tick-borne studies appreciate heme/onc & ID consultations Cong Chen MD Continued [facility] stay due to: multiple IV medications needed
[2016-07-26] MEDS: DOXYCYCLINE HYCLATE 100 MG CAP PO SCH (19:44)
[2016-07-26 20:00] VITALS: O2SAT 95
[2016-07-26 23:28] VITALS: BP 123/75; PULSE 63; TEMP 36.8; O2SAT 95
[2016-07-27] VITALS (7 sets, daily range): BP systolic 109–131; BP diastolic 72–87; PULSE 58–67; TEMP 36.4–36.7; O2SAT 95–96
[2016-07-27] MEDS: SODIUM CHLORIDE 0.9% 1000ML 1,000 ML IV SCH ×3 (05:17→21:33)
[2016-07-27] MEDS: LEVOTHYROXINE 50 MCG TAB PO SCH (05:41)
[2016-07-27 07:43] LABS: HEMATOCRIT 37.6 % (42-52); MEAN CELL VOLUME 88.1 fL (80-100); MEAN CORPUSCULAR HEMOGLOBIN 28.6 pg (25-34); MEAN CORPUSCULAR HGB CONC 32.4 g/dl (32-36); MEAN PLATELET VOLUME 11.5 fL (7.4-10.4); PLATELET COUNT 57 K/uL (130-400); RED BLOOD COUNT 4.27 M/uL (4.7-6.1); WHITE BLOOD COUNT 1.57 K/uL (4.8-10.8)
[2016-07-27 07:51] LABS: ALB/GLOB RATIO 0.9 (0.9-2); BUN/CREATININE RATIO 10.9 (10-20); CALCIUM 7.9 mg/dl (8.5-10.1); CREATININE 0.86 mg/dl (0.60-1.40); POTASSIUM 4.1 mmol/L (3.5-5.1)
[2016-07-27] MEDS: DOXYCYCLINE HYCLATE 100 MG CAP PO SCH ×2 (08:01→21:33)
[2016-07-27] MEDS: CEFEPIME IV 2,000 MG in DEXTROSE 5% 100ML 100 ML IV SCH ×3 (08:04→23:39)
[2016-07-27 08:38] LABS: BASO ABS # 0.02 K/uL (0-0.2); COMPLETE YES; GIANT PLATELETS 2+; LYMPH ABS # 0.63 K/uL (1.2-3.4); VARIANT LYM ABS # 0.22 K/uL
--- NOTE | 2016-07-27 10:26 | Family Medicine Progress Note ---
Progress Note Date of Service Jul 27, 2016. Subjective Pt evaluation today including: conversation w/ patient, physical exam Pain: none PO Intake: good Patient with no acute events overnight He is still having sweats at night but has not had any recorded fevers. He feels better and has not had any rashes, joint pain, cough, shortness of breath, chest pain, nausea, vomiting, bruising, bleeding or fevers Additional Comments: please see note for ROS Medications Current Inpatient Medications Medications (Trade) Dose Ordered Sig/Hossein Route Start Time Stop Time Status Last Admin Dose Admin Acetaminophen (Tylenol Tab) 650 mg Q4H PRN PO 07/26/16 03:30 08/25/16 03:29 07/26/16 05:16 650 MG Magnesium Hydroxide (Milk Of Magnesia Susp) 30 ml Q6H PRN PO 07/26/16 03:30 08/25/16 03:29 Ondansetron HCl (Zofran Inj) 4 mg Q6H PRN IV 07/26/16 03:30 08/25/16 03:29 Pantoprazole Sodium (Protonix Tab) 40 mg DAILY PRN PO 07/26/16 08:00 08/25/16 07:59 Cefepime HCl 2000 mg/Dextrose 112.5 ml @ 200 mls/hr Q8H IV 07/26/16 08:00 07/28/16 07:59 07/27/16 08:04 200 MLS/HR Sodium Chloride 1,000 ml @ 125 mls/hr Q8H IV 07/26/16 04:45 08/25/16 04:44 07/27/16 05:17 125 MLS/HR Levothyroxine Sodium (Synthroid Tab) 50 mcg DAILYBB PO 07/26/16 06:30 08/25/16 06:29 07/27/16 05:41 50 MCG Doxycycline Hyclate (Vibramycin Cap) 100 mg BID PO 07/26/16 20:00 08/05/16 19:59 07/27/16 08:01 100 MG Objective Vital Signs Date Time Temp Pulse Resp B/P (MAP) Pulse Ox O2 Delivery O2 Flow Rate FiO2 07/27/16 07:41 36.6 67 18 116/76 (89) 95 Room Air 07/27/16 00:00 95 Room Air 07/26/16 23:28 36.8 63 18 123/75 (91) 95 Room Air 07/26/16 20:00 95 Room Air 07/26/16 15:51 Room Air 07/26/16 15:10 37.2 73 18 112/73 (86) 95 Room Air Physical Exam General Appearance: WD/WN, no apparent distress, + pertinent finding (lymph nodes submandibular and inguinal and right axillary) ENT: hearing grossly normal, pharynx normal, + pertinent finding (has a couple missing teeth at the back) Neck: no JVD, no carotid bruits Respiratory/Chest: lungs clear, normal breath sounds, no accessory muscle use Cardiovascular: regular rate, rhythm, no gallop, no murmur Abdomen: normal bowel sounds, non tender, soft, no organomegaly Extremities: non-tender, no pedal edema, no calf tenderness, normal capillary refill Neurologic/Psychiatric: no motor/sensory deficits, alert, oriented x 3 Skin: normal color, warm/dry, no rash Laboratory Results Results Past 24 Hours Test 07/26/16 14:27 07/26/16 20:00 07/27/16 05:22 07/27/16 05:52 Range/Units Platelet Count 55 57 130-400 K/uL Hepatitis B Surface Antigen NEG NEG Hepatitis C Antibody NEG NEG White Blood Count 1.57 4.8-10.8 K/uL Red Blood Count 4.27 4.7-6.1 M/uL Hemoglobin 12.2 14.0-18.0 g/dL Hematocrit 37.6 42-52 % Mean Corpuscular Volume 88.1 80-100 fL Mean Corpuscular Hemoglobin 28.6 25-34 pg Mean Corpuscular Hemoglobin Concent 32.4 32-36 g/dl Mean Platelet Volume 11.5 7.4-10.4 fL RDW Standard Deviation 40.1 36.4-46.3 fL RDW Coefficient of Variation 12.5 11.5-14.5 % Neutrophils % (Manual) 28.0 % Lymphocytes % (Manual) 40.0 % Variant Lymphocytes % (manual) 14.0 % Monocytes % (Manual) 15.0 % Eosinophils % (Manual) 2.0 % Basophils % (Manual) 1.0 0-2 % Neutrophils # (Manual) 0.44 1.4-6.5 K/uL Total Absolute Neutrophils 0.44 1.4-6.5 K/uL Lymphocytes # (Manual) 0.63 1.2-3.4 K/uL Absolute Variant Lymphocytes 0.22 K/uL Total Absolute Lymphocytes 0.85 1.2-3.4 K/uL Monocytes # (Manual) 0.24 0.11-0.59 K/uL Eosinophils # (Manual) 0.03 0-0.5 K/uL Basophils # (Manual) 0.02 0-0.2 K/uL Giant Platelets 2+ Red Blood Cell Morphology Unremarkable Sodium Level 144 136-145 mmol/L Potassium Level 4.1 3.5-5.1 mmol/L Chloride Level 110 98-107 mmol/L Carbon Dioxide Level 26 21-32 mmol/L Anion Gap 8.0 3-11 mmol/L Blood Urea Nitrogen 9 7-18 mg/dl Creatinine 0.86 0.60-1.40 mg/dl Est Creatinine Clear Calc Drug Dose 125.1 ml/min Estimated GFR () 112.4 Estimated GFR (Non- 96.9 BUN/Creatinine Ratio 10.9 10-20 Random Glucose 89 70-99 mg/dl Calcium Level 7.9 8.5-10.1 mg/dl Total Bilirubin 0.6 0.2-1 mg/dl Aspartate Amino Transf (AST/SGOT) 30 15-37 U/L Alanine Aminotransferase (ALT/SGPT) 28 12-78 U/L Alkaline Phosphatase 61 45-117 U/L Total Protein 6.2 6.4-8.2 gm/dl Albumin 3.0 3.4-5.0 gm/dl Globulin 3.2 2.5-4.0 gm/dl Albumin/Globulin Ratio 0.9 0.9-2 Assessment and Plan 56 y/o M with PMH of MS and hypothyroidism presented to the ER with c/o persistent fevers with chills which started about 3 days ago. Was found to have WBC count of 1.34 and thrombocytopenia with a platelet count of 65. Neutropenic fever: - WBC count of 1.57 but ANC down to 0.44 - Blood cultures, urine cultures pending - Lyme serology, influenza negative - Ehrlichiosis, anaplasmosis, EBV, parvovirus B19 serology pending, added HIV, hepatitis panel and CMV - Cefepime 2 g every 8 hours and doxy added for tick born illness' - Infectious disease consult - Neutropenic precautions - order ESR - [place] virus? Thrombocytopenia with neutropenia: Bone marrow suppression secondary to infection versus multiple sclerosis drugs versus malignancy - Platelet count at 57 with no active bleeding - Hematology consult Multiple sclerosis:- Stable Was on Copaxone and Rebif and tecfidera which he is no longer using Hypothyroidism - Continue Synthroid 50 g GERD: -Continue esmoprazole DVT prophylaxis: SCDs Chemical anticoagulations avoided due to low platelets Full code Resident Physician Supervision Note: I was present with PGY1 Dr. Yaya Bey during the history and exam. I discussed the case with the resident and agree with the findings and plan as documented in the note. Any exceptions or clarifications are listed here: none. Pt w/o complaints today. Has a "pimple" behind his right ear. VSS no fever gen - nad skin - infected hair follicle posterior to right ear heart - RRR, s1, s2, no murmur lungs - CTA b/l abd - soft, NO HSM ext - no edema CBC - wbc, platelets low ANC <500 A/P: Suspected viral vs tick-borne illness with bone marrow suppression causing neutropenia with thrombocytopenia. Pt clinically well/stable. Blood cx's neg. Cont doxy. Bactroban for right scalp infected hair follicle. If CBC improving tomorrow can likely d/c home. Documented By: Cong Chen MD Continued [facility] stay due to: multiple IV medications needed, other
--- NOTE | 2016-07-27 13:58 | Medical Student: [facility] ---
Med Student Progress Note Date of Service Jul 27, 2016. Subjective Pt evaluation today including: conversation w/ patient This is a 56 y/o male with pmh of MS and hypothyroidism who is the hospital for neutropenic fever, thrombocytopenia, and severe neutropenia. Patient had no acute events overnight, and feels well overall. He does report some night sweats , which have been present since his illness began. He has remained afebrile. He denies headaches, n/v/d, chest pain, cough, SOB, abdominal pain, dysuria, hematuria, myalgias. Review of Systems Constitutional: No fever, No chills Abdomen: No nausea, No vomiting, No diarrhea Male : No dysuria Skin: No rash Objective Vital Signs Date Time Temp Pulse Resp B/P (MAP) Pulse Ox O2 Delivery O2 Flow Rate FiO2 07/27/16 08:10 Room Air 07/27/16 07:41 36.6 67 18 116/76 (89) 95 Room Air 07/27/16 00:00 95 Room Air 07/26/16 23:28 36.8 63 18 123/75 (91) 95 Room Air 07/26/16 20:00 95 Room Air 07/26/16 15:51 Room Air 07/26/16 15:10 37.2 73 18 112/73 (86) 95 Room Air Physical Exam General Appearance: WD/WN, no apparent distress ENT: pharynx normal Neck: thyroid normal, + adenopathy present (minor lymphadenopathy ) Respiratory/Chest: chest non-tender, lungs clear, normal breath sounds, no respiratory distress, no accessory muscle use Cardiovascular: regular rate, rhythm, no edema, no gallop, no JVD, no murmur Abdomen: normal bowel sounds, non tender, soft, no organomegaly Extremities: no pedal edema Neurologic/Psychiatric: alert, normal mood/affect, oriented x 3 Skin: normal color, warm/dry, no rash Laboratory Results Last 24 Hours Test 07/26/16 14:27 07/26/16 20:00 07/27/16 05:22 07/27/16 05:52 Platelet Count 55 K/uL 57 K/uL Hepatitis B Surface Antigen NEG Hepatitis C Antibody NEG White Blood Count 1.57 K/uL Red Blood Count 4.27 M/uL Hemoglobin 12.2 g/dL Hematocrit 37.6 % Mean Corpuscular Volume 88.1 fL Mean Corpuscular Hemoglobin 28.6 pg Mean Corpuscular Hemoglobin Concent 32.4 g/dl Mean Platelet Volume 11.5 fL RDW Standard Deviation 40.1 fL RDW Coefficient of Variation 12.5 % Neutrophils % (Manual) 28.0 % Lymphocytes % (Manual) 40.0 % Variant Lymphocytes % (manual) 14.0 % Monocytes % (Manual) 15.0 % Eosinophils % (Manual) 2.0 % Basophils % (Manual) 1.0 % Neutrophils # (Manual) 0.44 K/uL Total Absolute Neutrophils 0.44 K/uL Lymphocytes # (Manual) 0.63 K/uL Absolute Variant Lymphocytes 0.22 K/uL Total Absolute Lymphocytes 0.85 K/uL Monocytes # (Manual) 0.24 K/uL Eosinophils # (Manual) 0.03 K/uL Basophils # (Manual) 0.02 K/uL Giant Platelets 2+ Red Blood Cell Morphology Unremarkable Sodium Level 144 mmol/L Potassium Level 4.1 mmol/L Chloride Level 110 mmol/L Carbon Dioxide Level 26 mmol/L Anion Gap 8.0 mmol/L Blood Urea Nitrogen 9 mg/dl Creatinine 0.86 mg/dl Est Creatinine Clear Calc Drug Dose 125.1 ml/min Estimated GFR () 112.4 Estimated GFR (Non- 96.9 BUN/Creatinine Ratio 10.9 Random Glucose 89 mg/dl Calcium Level 7.9 mg/dl Total Bilirubin 0.6 mg/dl Aspartate Amino Transf (AST/SGOT) 30 U/L Alanine Aminotransferase (ALT/SGPT) 28 U/L Alkaline Phosphatase 61 U/L Total Protein 6.2 gm/dl Albumin 3.0 gm/dl Globulin 3.2 gm/dl Albumin/Globulin Ratio 0.9 Test 07/27/16 10:50 Erythrocyte Sedimentation Rate 10 mm/hr Medications Medications Administered Medications (Trade) Dose Ordered Sig/Hossein Route Start Time Stop Time Status Last Admin Dose Admin Cefepime HCl 2000 mg/Dextrose 122.6 ml @ 200 mls/hr NOW STAT IV 07/26/16 00:26 07/26/16 01:02 DC 07/26/16 00:48 200 MLS/HR Acetaminophen (Tylenol Tab) 650 mg Q4H PRN PO 07/26/16 03:30 08/25/16 03:29 07/26/16 05:16 650 MG Doxycycline Hyclate (Vibramycin Cap) 100 mg NOW STAT PO 07/26/16 03:42 07/26/16 03:56 DC 07/26/16 05:16 100 MG Cefepime HCl 2000 mg/Dextrose 112.5 ml @ 200 mls/hr Q8H IV 07/26/16 08:00 07/28/16 07:59 07/27/16 08:04 200 MLS/HR Sodium Chloride 1,000 ml @ 125 mls/hr Q8H IV 07/26/16 04:45 08/25/16 04:44 07/27/16 13:41 125 MLS/HR Levothyroxine Sodium (Synthroid Tab) 50 mcg DAILYBB PO 07/26/16 06:30 08/25/16 06:29 07/27/16 05:41 50 MCG Doxycycline Hyclate (Vibramycin Cap) 100 mg BID PO 07/26/16 20:00 08/05/16 19:59 07/27/16 08:01 100 MG Assessment and Plan Assessment and Plan: This is a 56 y/o male with neutropenic fever, thrombocytopenia, leukopenia, and severe neutropenia. The current differential includes infectious v. malignancy v. acquired. Neutropenic fever -Continue doxycycline and cefepime -blood cultures negative Leukopenia, severe neutropenia -ANC 0.44, continue to monitor -Serologies pending -Parvo, a. phagocytophilum, CMV, EBV, HIV, e chaffeensis pending -Hep B negative, Influenza negative, Lymes negative. -Consider neupogen shot Thrombocytopenia -continue to monitor platelets -platelet transfusion if symptomatic Continued [facility] stay due to: multiple IV medications needed, other
[2016-07-27] MEDS: MUPIROCIN 2% OINT 22 GM TUBE EXT SCH ×2 (17:09→21:33)
--- NOTE | 2016-07-27 20:31 | Infectious Disease Progress Nt ---
Progress Note Date of Service Jul 27, 2016. Subjective Pt evaluation today including: conversation w/ patient, physical exam, chart review, lab review, review of studies, conversation w/ [employer] ax consultant, review of inpatient medication list Patient offers no new complaints today. Remains afebrile. Platelet count appears to have stabilized. White blood cell count improving. Cultures remain negative to date. All Other Systems: Reviewed and Negative Medications Current Inpatient Medications Medications (Trade) Dose Ordered Sig/Hossein Route Start Time Stop Time Status Last Admin Dose Admin Acetaminophen (Tylenol Tab) 650 mg Q4H PRN PO 07/26/16 03:30 08/25/16 03:29 07/26/16 05:16 650 MG Magnesium Hydroxide (Milk Of Magnesia Susp) 30 ml Q6H PRN PO 07/26/16 03:30 08/25/16 03:29 Ondansetron HCl (Zofran Inj) 4 mg Q6H PRN IV 07/26/16 03:30 08/25/16 03:29 Pantoprazole Sodium (Protonix Tab) 40 mg DAILY PRN PO 07/26/16 08:00 08/25/16 07:59 Cefepime HCl 2000 mg/Dextrose 112.5 ml @ 200 mls/hr Q8H IV 07/26/16 08:00 07/28/16 07:59 07/27/16 17:08 200 MLS/HR Sodium Chloride 1,000 ml @ 125 mls/hr Q8H IV 07/26/16 04:45 08/25/16 04:44 07/27/16 13:41 125 MLS/HR Levothyroxine Sodium (Synthroid Tab) 50 mcg DAILYBB PO 07/26/16 06:30 08/25/16 06:29 07/27/16 05:41 50 MCG Doxycycline Hyclate (Vibramycin Cap) 100 mg BID PO 07/26/16 20:00 08/05/16 19:59 07/27/16 08:01 100 MG Mupirocin (Bactroban 2% Oint) 1 appln TID EXT 07/27/16 15:15 08/26/16 15:14 07/27/16 17:09 1 APPLN Objective Vital Signs Date Time Temp Pulse Resp B/P (MAP) Pulse Ox O2 Delivery O2 Flow Rate FiO2 07/27/16 15:35 36.4 58 16 109/72 (84) 95 Room Air 07/27/16 14:05 131/87 (102) 07/27/16 14:02 129/87 (101) 07/27/16 14:00 36.5 63 18 130/87 (101) 96 Room Air 07/27/16 08:10 Room Air 07/27/16 07:41 36.6 67 18 116/76 (89) 95 Room Air 07/27/16 00:00 95 Room Air 07/26/16 23:28 36.8 63 18 123/75 (91) 95 Room Air Physical Exam General Appearance: WD/WN, no apparent distress Eyes: normal inspection, EOMI, sclerae normal ENT: normal ENT inspection, pharynx normal Neck: supple, thyroid normal, trachea midline, + adenopathy present Respiratory/Chest: lungs clear, normal breath sounds, no respiratory distress Cardiovascular: regular rate, rhythm, no gallop, no murmur Abdomen: normal bowel sounds, non tender, soft, no organomegaly Extremities: non-tender, no calf tenderness Neurologic/Psychiatric: alert, oriented x 3 Skin: normal color, warm/dry, no rash Laboratory Results Last 24 Hours Test 07/27/16 05:22 07/27/16 05:52 07/27/16 10:50 Hepatitis B Surface Antigen NEG Hepatitis C Antibody NEG White Blood Count 1.57 K/uL Red Blood Count 4.27 M/uL Hemoglobin 12.2 g/dL Hematocrit 37.6 % Mean Corpuscular Volume 88.1 fL Mean Corpuscular Hemoglobin 28.6 pg Mean Corpuscular Hemoglobin Concent 32.4 g/dl Platelet Count 57 K/uL Mean Platelet Volume 11.5 fL RDW Standard Deviation 40.1 fL RDW Coefficient of Variation 12.5 % Neutrophils % (Manual) 28.0 % Lymphocytes % (Manual) 40.0 % Variant Lymphocytes % (manual) 14.0 % Monocytes % (Manual) 15.0 % Eosinophils % (Manual) 2.0 % Basophils % (Manual) 1.0 % Neutrophils # (Manual) 0.44 K/uL Total Absolute Neutrophils 0.44 K/uL Lymphocytes # (Manual) 0.63 K/uL Absolute Variant Lymphocytes 0.22 K/uL Total Absolute Lymphocytes 0.85 K/uL Monocytes # (Manual) 0.24 K/uL Eosinophils # (Manual) 0.03 K/uL Basophils # (Manual) 0.02 K/uL Giant Platelets 2+ Red Blood Cell Morphology Unremarkable Sodium Level 144 mmol/L Potassium Level 4.1 mmol/L Chloride Level 110 mmol/L Carbon Dioxide Level 26 mmol/L Anion Gap 8.0 mmol/L Blood Urea Nitrogen 9 mg/dl Creatinine 0.86 mg/dl Est Creatinine Clear Calc Drug Dose 125.1 ml/min Estimated GFR () 112.4 Estimated GFR (Non- 96.9 BUN/Creatinine Ratio 10.9 Random Glucose 89 mg/dl Calcium Level 7.9 mg/dl Total Bilirubin 0.6 mg/dl Aspartate Amino Transf (AST/SGOT) 30 U/L Alanine Aminotransferase (ALT/SGPT) 28 U/L Alkaline Phosphatase 61 U/L Total Protein 6.2 gm/dl Albumin 3.0 gm/dl Globulin 3.2 gm/dl Albumin/Globulin Ratio 0.9 Erythrocyte Sedimentation Rate 10 mm/hr Assessment and Plan 56-year-old male with multiple sclerosis and hypothyroidism, but otherwise in good health presents with relatively acute onset of fever associated with significant neutropenia and thrombocytopenia. Given potential tick exposure, anaplasmosis certainly a distinct possibility. Other viral infections such as parvovirus or EBV also possible. There have been cases of leukemia an aplastic anemia associated potentially with exposure to contaminated water at [facility], and Hematology consult has been requested. For now, I agree with empiric use of cefepime for neutropenic fever, and have added doxycycline to cover potential of anaplasma infection. Will follow.
[2016-07-28] MEDS: SODIUM CHLORIDE 0.9% 1000ML 1,000 ML IV SCH ×2 (05:47→14:31)
[2016-07-28] MEDS: LEVOTHYROXINE 50 MCG TAB PO SCH (05:47)
[2016-07-28 07:13] VITALS: BP 112/75; PULSE 67; TEMP 36.3; O2SAT 94
[2016-07-28 07:42] LABS: HEMATOCRIT 37.2 % (42-52); MEAN CELL VOLUME 87.9 fL (80-100); MEAN CORPUSCULAR HEMOGLOBIN 29.8 pg (25-34); MEAN CORPUSCULAR HGB CONC 33.9 g/dl (32-36); RED BLOOD COUNT 4.23 M/uL (4.7-6.1)
[2016-07-28 07:58] LABS: BUN/CREATININE RATIO 12.4 (10-20); CALCIUM 8.4 mg/dl (8.5-10.1); CREATININE 0.94 mg/dl (0.60-1.40)
[2016-07-28 08:02] LABS: MEAN PLATELET VOLUME 10.9 fL (7.4-10.4); PLATELET COUNT 68 K/uL (130-400)
[2016-07-28 08:14] LABS: BASO % 1.9 %; BASO ABS # 0.05 K/uL (0-0.2); COMPLETE YES; LYMPH % 47.4 %; LYMPH ABS # 1.28 K/uL (1.2-3.4); MONO % 8.5 %; NEUT % 39.2 %; VACUOLIZATION 1+
[2016-07-28] MEDS: DOXYCYCLINE HYCLATE 100 MG CAP PO SCH ×2 (08:24→20:39)
[2016-07-28] MEDS: MUPIROCIN 2% OINT 22 GM TUBE EXT SCH ×3 (08:24→20:00)
[2016-07-28 08:35] LABS: ALB/GLOB RATIO 0.9 (0.9-2)
--- NOTE | 2016-07-28 10:37 | Hematology/Oncology Prog Note ---
Hematology/Onc Progress Note Date of Service Jul 28, 2016. Diagnoses Fevers Pancytopenia Medications Medications Administered Medications (Trade) Dose Ordered Sig/Hossein Route Start Time Stop Time Status Last Admin Dose Admin Cefepime HCl 2000 mg/Dextrose 122.6 ml @ 200 mls/hr NOW STAT IV 07/26/16 00:26 07/26/16 01:02 DC 07/26/16 00:48 200 MLS/HR Acetaminophen (Tylenol Tab) 650 mg Q4H PRN PO 07/26/16 03:30 08/25/16 03:29 07/26/16 05:16 650 MG Doxycycline Hyclate (Vibramycin Cap) 100 mg NOW STAT PO 07/26/16 03:42 07/26/16 03:56 DC 07/26/16 05:16 100 MG Cefepime HCl 2000 mg/Dextrose 112.5 ml @ 200 mls/hr Q8H IV 07/26/16 08:00 07/28/16 07:59 DC 07/27/16 23:39 200 MLS/HR Sodium Chloride 1,000 ml @ 125 mls/hr Q8H IV 07/26/16 04:45 08/25/16 04:44 07/28/16 05:47 125 MLS/HR Levothyroxine Sodium (Synthroid Tab) 50 mcg DAILYBB PO 07/26/16 06:30 08/25/16 06:29 07/28/16 05:47 50 MCG Doxycycline Hyclate (Vibramycin Cap) 100 mg BID PO 07/26/16 20:00 08/05/16 19:59 07/28/16 08:24 100 MG Mupirocin (Bactroban 2% Oint) 1 appln TID EXT 07/27/16 15:15 08/26/16 15:14 07/28/16 08:24 1 APPLN Subjective Mr. Valentino looks well today. He has been afebrile since admission. His cultures remain negative and his counts, after initially trending down, are up today. He has no other new complaints or symptoms. Review of Systems: Constitutional: No fever, No chills ENT: No sore throat Respiratory: No cough, No shortness of breath Cardiovascular: No chest pain Abdomen: No pain, No nausea, No diarrhea Musculoskeletal: No joint pain, No muscle pain Male : No dysuria Heme: No abnormal bleeding/bruising, No night sweats Skin: No rash Vital Signs Vital Signs Past 12 Hours Date Time Temp Pulse Resp B/P (MAP) Pulse Ox O2 Delivery O2 Flow Rate FiO2 07/28/16 07:13 36.3 67 16 112/75 (87) 94 Room Air 07/28/16 00:15 Room Air 07/27/16 23:59 36.7 59 18 121/80 (94) 96 Room Air Physical Exam Constitutional: General Apperance: heathly-appearing Level of Distress: NAD Psychiatric: Mental Status: active & alert Orientation: oriented except where noted Eyes: EOM: EOMI ENMT: pharynx normal Lungs: Respiratory Effort: no dyspnea Auscuitation: breath sounds normal Cardiovascular: Heart Auscultation: RRR Abdomen: Inspection & Palpation: soft, no tenderness, guarding & rebound Extremities: no edema Laboratory Last 24 Hours Test 07/27/16 10:50 07/28/16 07:31 Erythrocyte Sedimentation Rate 10 mm/hr White Blood Count 2.70 K/uL Red Blood Count 4.23 M/uL Hemoglobin 12.6 g/dL Hematocrit 37.2 % Mean Corpuscular Volume 87.9 fL Mean Corpuscular Hemoglobin 29.8 pg Mean Corpuscular Hemoglobin Concent 33.9 g/dl Platelet Count 68 K/uL Mean Platelet Volume 10.9 fL Neutrophils (%) (Auto) 39.2 % Lymphocytes (%) (Auto) 47.4 % Monocytes (%) (Auto) 8.5 % Eosinophils (%) (Auto) 3.0 % Basophils (%) (Auto) 1.9 % Neutrophils # (Auto) 1.06 K/uL Lymphocytes # (Auto) 1.28 K/uL Monocytes # (Auto) 0.23 K/uL Eosinophils # (Auto) 0.08 K/uL Basophils # (Auto) 0.05 K/uL RDW Standard Deviation 40.0 fL RDW Coefficient of Variation 12.4 % Immature Granulocyte % (Auto) 0.0 % Immature Granulocyte # (Auto) 0.00 K/uL Toxic Vacuolation 1+ Sodium Level 144 mmol/L Potassium Level 4.0 mmol/L Chloride Level 110 mmol/L Carbon Dioxide Level 28 mmol/L Anion Gap 6.0 mmol/L Blood Urea Nitrogen 12 mg/dl Creatinine 0.94 mg/dl Est Creatinine Clear Calc Drug Dose 114.5 ml/min Estimated GFR () 104.6 Estimated GFR (Non- 90.3 BUN/Creatinine Ratio 12.4 Random Glucose 95 mg/dl Calcium Level 8.4 mg/dl Total Bilirubin 0.6 mg/dl Aspartate Amino Transf (AST/SGOT) 31 U/L Alanine Aminotransferase (ALT/SGPT) 34 U/L Alkaline Phosphatase 70 U/L Total Protein 6.7 gm/dl Albumin 3.2 gm/dl Globulin 3.5 gm/dl Albumin/Globulin Ratio 0.9 Assessment & Plan Mr. Valentino's counts are improving. This may reflect response to treatment with Doxycycline, if this is a zoonotic infection, or it may reflect marrow recovery from an acute viral illness. Regardless, we will continue to monitor the results of his diagnostic workup. If he remains afebrile and his counts continue to recover, we can discontinue the cefepime tomorrow.
--- NOTE | 2016-07-28 11:03 | Family Medicine Progress Note ---
Progress Note Date of Service Jul 28, 2016. Subjective Pt evaluation today including: conversation w/ patient, physical exam, chart review, lab review, conversation w/ security consultant, review of inpatient medication list Pain: none PO Intake: good Voiding: no voiding problems, no incontinence patient with no acute events overnight He did feel slightly nauseated overnight with some mild neck stiffness. He said he was close to vomiting this morning but didn't end up vomiting. He said otherwise he feels great. He denies any cough, chest tightness, shortness of breath, fevers, night sweats , chills, abnormal bruising or bleeding, rashes, joint pain, headache, confusion , abdominal pain, diarrhea, constipation Additional Comments: please see above not for ROS Medications Current Inpatient Medications Medications (Trade) Dose Ordered Sig/Hossein Route Start Time Stop Time Status Last Admin Dose Admin Acetaminophen (Tylenol Tab) 650 mg Q4H PRN PO 07/26/16 03:30 08/25/16 03:29 07/26/16 05:16 650 MG Magnesium Hydroxide (Milk Of Magnesia Susp) 30 ml Q6H PRN PO 07/26/16 03:30 08/25/16 03:29 Ondansetron HCl (Zofran Inj) 4 mg Q6H PRN IV 07/26/16 03:30 08/25/16 03:29 Pantoprazole Sodium (Protonix Tab) 40 mg DAILY PRN PO 07/26/16 08:00 08/25/16 07:59 Sodium Chloride 1,000 ml @ 125 mls/hr Q8H IV 07/26/16 04:45 08/25/16 04:44 07/28/16 05:47 125 MLS/HR Levothyroxine Sodium (Synthroid Tab) 50 mcg DAILYBB PO 07/26/16 06:30 08/25/16 06:29 07/28/16 05:47 50 MCG Doxycycline Hyclate (Vibramycin Cap) 100 mg BID PO 07/26/16 20:00 08/05/16 19:59 07/28/16 08:24 100 MG Mupirocin (Bactroban 2% Oint) 1 appln TID EXT 07/27/16 15:15 08/26/16 15:14 07/28/16 08:24 1 APPLN Objective Vital Signs Date Time Temp Pulse Resp B/P (MAP) Pulse Ox O2 Delivery O2 Flow Rate FiO2 07/28/16 07:13 36.3 67 16 112/75 (87) 94 Room Air 07/28/16 00:15 Room Air 07/27/16 23:59 36.7 59 18 121/80 (94) 96 Room Air 07/27/16 16:00 Room Air 07/27/16 15:35 36.4 58 16 109/72 (84) 95 Room Air 07/27/16 14:05 131/87 (102) 07/27/16 14:02 129/87 (101) 07/27/16 14:00 36.5 63 18 130/87 (101) 96 Room Air Physical Exam General Appearance: WD/WN, no apparent distress Respiratory/Chest: chest non-tender, lungs clear, normal breath sounds, no respiratory distress, no accessory muscle use Cardiovascular: regular rate, rhythm, no edema, no gallop, no JVD, no murmur Abdomen: normal bowel sounds, non tender, soft Extremities: normal range of motion, non-tender, no pedal edema, no calf tenderness Neurologic/Psychiatric: alert, normal mood/affect, oriented x 3, + pertinent finding (no neck stifness on flexion, negative rovsings and brudzinkis sign) Laboratory Results Results Past 24 Hours Test 07/28/16 07:31 Range/Units White Blood Count 2.70 4.8-10.8 K/uL Red Blood Count 4.23 4.7-6.1 M/uL Hemoglobin 12.6 14.0-18.0 g/dL Hematocrit 37.2 42-52 % Mean Corpuscular Volume 87.9 80-100 fL Mean Corpuscular Hemoglobin 29.8 25-34 pg Mean Corpuscular Hemoglobin Concent 33.9 32-36 g/dl Platelet Count 68 130-400 K/uL Mean Platelet Volume 10.9 7.4-10.4 fL Neutrophils (%) (Auto) 39.2 % Lymphocytes (%) (Auto) 47.4 % Monocytes (%) (Auto) 8.5 % Eosinophils (%) (Auto) 3.0 % Basophils (%) (Auto) 1.9 % Neutrophils # (Auto) 1.06 1.4-6.5 K/uL Lymphocytes # (Auto) 1.28 1.2-3.4 K/uL Monocytes # (Auto) 0.23 0.11-0.59 K/uL Eosinophils # (Auto) 0.08 0-0.5 K/uL Basophils # (Auto) 0.05 0-0.2 K/uL RDW Standard Deviation 40.0 36.4-46.3 fL RDW Coefficient of Variation 12.4 11.5-14.5 % Immature Granulocyte % (Auto) 0.0 % Immature Granulocyte # (Auto) 0.00 0.00-0.02 K/uL Toxic Vacuolation 1+ Sodium Level 144 136-145 mmol/L Potassium Level 4.0 3.5-5.1 mmol/L Chloride Level 110 98-107 mmol/L Carbon Dioxide Level 28 21-32 mmol/L Anion Gap 6.0 3-11 mmol/L Blood Urea Nitrogen 12 7-18 mg/dl Creatinine 0.94 0.60-1.40 mg/dl Est Creatinine Clear Calc Drug Dose 114.5 ml/min Estimated GFR () 104.6 Estimated GFR (Non- 90.3 BUN/Creatinine Ratio 12.4 10-20 Random Glucose 95 70-99 mg/dl Calcium Level 8.4 8.5-10.1 mg/dl Total Bilirubin 0.6 0.2-1 mg/dl Aspartate Amino Transf (AST/SGOT) 31 15-37 U/L Alanine Aminotransferase (ALT/SGPT) 34 12-78 U/L Alkaline Phosphatase 70 45-117 U/L Total Protein 6.7 6.4-8.2 gm/dl Albumin 3.2 3.4-5.0 gm/dl Globulin 3.5 2.5-4.0 gm/dl Albumin/Globulin Ratio 0.9 0.9-2 Assessment and Plan 56 y/o M with PMH of MS and hypothyroidism presented to the ER with c/o persistent fevers with chills Was found to have WBC count of 1.34 and thrombocytopenia with a platelet count of 65. His WBC and platelet count are improving to 2.7 and 67 respectively. If this is due to starting doxycycline or due to a rebound in the bone marrow after a viral cause is still unknown. We will continue to monitor the patient for elevating blood counts Neutropenic fever: - WBC count of 2.7 but ANC of 1.06, these are increasing from yesterday - Blood cultures negative to day - Lyme serology, influenza negative - Ehrlichiosis, anaplasmosis, EBV, parvovirus B19 serology pending, HIV and CMV still pending - lyme, flu and hepatitis negative - Cefepime 2 g every 8 hours and doxy for tick born illness' - Infectious disease consult- they suggest that we can stop cefipime tomorrow if blood counts continue to rise - Neutropenic precautions - order ESR Thrombocytopenia with neutropenia: Bone marrow suppression secondary to viral infection vs tick borne infection - Platelet count at 67 which is increased from yesterday Multiple sclerosis:- Stable Was on Copaxone and Rebif and tecfidera which he is no longer using Hypothyroidism - Continue Synthroid 50 g GERD: -Continue esmoprazole DVT prophylaxis: SCDs Chemical anticoagulations avoided due to low platelets Full code Resident Physician Supervision Note: I was present with PGY1 Dr. Yaya Bey during the history and exam. I discussed the case with the resident and agree with the findings and plan as documented in the note. Any exceptions or clarifications are listed here: none. Pt w/o complaints during my visit. he "feels great" and is eating well; anxious to get home. VSS no fever gen - nad skin - infected hair follicle posterior to right ear - improving heart - RRR, s1, s2, no murmur lungs - CTA b/l abd - soft, NO HSM ext - no edema CBC - wbc, platelets low but improved today ANC 1060 A/P: Suspected viral vs tick-borne illness with bone marrow suppression causing neutropenia with thrombocytopenia. Pt clinically well/stable and improving. WBC, ANC, and platelets all recovering -- this is VERY reassuring that we are not dealing with malignancy. Blood cx's neg. Cont doxy. Bactroban for right scalp infected hair follicle. If CBC continues to improve can likely d/c home in AM. Documented By: Cong Chen MD Continued [facility] stay due to: multiple IV medications needed
[2016-07-28] MEDS: CEFEPIME IV 2,000 MG in DEXTROSE 5% 100ML 100 ML IV SCH ×2 (11:32→20:39)
--- NOTE | 2016-07-28 13:21 | Medical Student: [facility] ---
Med Student Progress Note Date of Service Jul 28, 2016. Subjective This is a 56 y/o male with neutropenic fevers and neutropenia. He has been afebrile since admission and has not had any acute events overnight. His counts are improving since yesterday. He denies any feelings of illness but is noting what he describes as feeling "out of it and dizzy" from time to time. He localizes the sensation to the back of his head. Otherwise, he has no complaints. He denies night sweats, fevers, chills, n/v/d, cough, chest pain, SOB, dysuria. He denies any other symptoms. Review of Systems Constitutional: No fever, No chills, No sweats, No weight loss, No weakness Respiratory: No cough, No sputum, No shortness of breath, No dyspnea on exertion Cardiac: No chest pain Abdomen: No pain, No nausea, No vomiting, No diarrhea Musculoskeletal: No joint pain, No muscle pain, No swelling Male : No urinary frequency Skin: No rash Objective Vital Signs Date Time Temp Pulse Resp B/P (MAP) Pulse Ox O2 Delivery O2 Flow Rate FiO2 07/28/16 08:00 Room Air 07/28/16 07:13 36.3 67 16 112/75 (87) 94 Room Air 07/28/16 00:15 Room Air 07/27/16 23:59 36.7 59 18 121/80 (94) 96 Room Air 07/27/16 16:00 Room Air 07/27/16 15:35 36.4 58 16 109/72 (84) 95 Room Air 07/27/16 14:05 131/87 (102) 07/27/16 14:02 129/87 (101) 07/27/16 14:00 36.5 63 18 130/87 (101) 96 Room Air Physical Exam General Appearance: WD/WN, no apparent distress Neck: supple, no adenopathy, thyroid normal, no JVD Respiratory/Chest: chest non-tender, lungs clear, normal breath sounds, no respiratory distress, no accessory muscle use Cardiovascular: regular rate, rhythm, no edema, no gallop, no JVD, no murmur Abdomen: normal bowel sounds, non tender, soft, no organomegaly, no pulsatile mass Extremities: non-tender, normal inspection, no pedal edema Neurologic/Psychiatric: alert, normal mood/affect, oriented x 3 Skin: normal color, warm/dry, no rash Laboratory Results Last 24 Hours Test 07/28/16 07:31 White Blood Count 2.70 K/uL Red Blood Count 4.23 M/uL Hemoglobin 12.6 g/dL Hematocrit 37.2 % Mean Corpuscular Volume 87.9 fL Mean Corpuscular Hemoglobin 29.8 pg Mean Corpuscular Hemoglobin Concent 33.9 g/dl Platelet Count 68 K/uL Mean Platelet Volume 10.9 fL Neutrophils (%) (Auto) 39.2 % Lymphocytes (%) (Auto) 47.4 % Monocytes (%) (Auto) 8.5 % Eosinophils (%) (Auto) 3.0 % Basophils (%) (Auto) 1.9 % Neutrophils # (Auto) 1.06 K/uL Lymphocytes # (Auto) 1.28 K/uL Monocytes # (Auto) 0.23 K/uL Eosinophils # (Auto) 0.08 K/uL Basophils # (Auto) 0.05 K/uL RDW Standard Deviation 40.0 fL RDW Coefficient of Variation 12.4 % Immature Granulocyte % (Auto) 0.0 % Immature Granulocyte # (Auto) 0.00 K/uL Toxic Vacuolation 1+ Sodium Level 144 mmol/L Potassium Level 4.0 mmol/L Chloride Level 110 mmol/L Carbon Dioxide Level 28 mmol/L Anion Gap 6.0 mmol/L Blood Urea Nitrogen 12 mg/dl Creatinine 0.94 mg/dl Est Creatinine Clear Calc Drug Dose 114.5 ml/min Estimated GFR () 104.6 Estimated GFR (Non- 90.3 BUN/Creatinine Ratio 12.4 Random Glucose 95 mg/dl Calcium Level 8.4 mg/dl Total Bilirubin 0.6 mg/dl Aspartate Amino Transf (AST/SGOT) 31 U/L Alanine Aminotransferase (ALT/SGPT) 34 U/L Alkaline Phosphatase 70 U/L Total Protein 6.7 gm/dl Albumin 3.2 gm/dl Globulin 3.5 gm/dl Albumin/Globulin Ratio 0.9 Medications Medications Administered Medications (Trade) Dose Ordered Sig/Hossein Route Start Time Stop Time Status Last Admin Dose Admin Cefepime HCl 2000 mg/Dextrose 122.6 ml @ 200 mls/hr NOW STAT IV 07/26/16 00:26 07/26/16 01:02 DC 07/26/16 00:48 200 MLS/HR Acetaminophen (Tylenol Tab) 650 mg Q4H PRN PO 07/26/16 03:30 08/25/16 03:29 07/26/16 05:16 650 MG Doxycycline Hyclate (Vibramycin Cap) 100 mg NOW STAT PO 07/26/16 03:42 07/26/16 03:56 DC 07/26/16 05:16 100 MG Cefepime HCl 2000 mg/Dextrose 112.5 ml @ 200 mls/hr Q8H IV 07/26/16 08:00 07/28/16 07:59 DC 07/27/16 23:39 200 MLS/HR Sodium Chloride 1,000 ml @ 125 mls/hr Q8H IV 07/26/16 04:45 08/25/16 04:44 07/28/16 05:47 125 MLS/HR Levothyroxine Sodium (Synthroid Tab) 50 mcg DAILYBB PO 07/26/16 06:30 08/25/16 06:29 07/28/16 05:47 50 MCG Doxycycline Hyclate (Vibramycin Cap) 100 mg BID PO 07/26/16 20:00 08/05/16 19:59 07/28/16 08:24 100 MG Mupirocin (Bactroban 2% Oint) 1 appln TID EXT 07/27/16 15:15 08/26/16 15:14 07/28/16 08:24 1 APPLN Cefepime HCl 2000 mg/Dextrose 112.5 ml @ 200 mls/hr Q8H IV 07/28/16 12:00 07/30/16 11:59 07/28/16 11:32 200 MLS/HR Assessment and Plan Assessment and Plan: This is a 56 y/o male with neutropenic fevers, neutropenia, thrombocytopenia, with counts that appear to be improving from yesterday. While no etiology is identified as of yet, his picture is most consistent with either a zoonotic or acute viral illness. 1. Neutropenic fever, neutropenia -WBC up to 2.7 today. -Continue to monitor CBC -Continue Doxy, if continuing to improve may d/c cefepime -Serologies pending. -Parvo, a. phagocytophilum, CMV, EBV, HIV, e chaffeensis pending -Hep B negative, Influenza negative, Lymes negative. 2. Thrombocytopenia -continue to monitor platelets -platelet transfusion if symptomatic Continued [facility] stay due to: multiple IV medications needed, other Continued [facility] stay due to: multiple IV medications needed
[2016-07-28 14:23] VITALS: BP 127/79; PULSE 55; TEMP 36.5; O2SAT 97
[2016-07-28] MEDS ORDERED: NURSING VERBAL MED ORDER ONE (17:45)
[2016-07-28 23:15] VITALS: BP 120/69; PULSE 57; TEMP 36.6; O2SAT 97
[2016-07-29] MEDS: CEFEPIME IV 2,000 MG in DEXTROSE 5% 100ML 100 ML IV SCH ×2 (05:21→12:00)
[2016-07-29] MEDS: LEVOTHYROXINE 50 MCG TAB PO SCH (05:22)
[2016-07-29 05:35] LABS: HEMATOCRIT 36.9 % (42-52); MEAN CELL VOLUME 87.2 fL (80-100); MEAN CORPUSCULAR HEMOGLOBIN 29.3 pg (25-34); MEAN CORPUSCULAR HGB CONC 33.6 g/dl (32-36); RED BLOOD COUNT 4.23 M/uL (4.7-6.1); WHITE BLOOD COUNT 3.21 K/uL (4.8-10.8)
[2016-07-29 05:39] LABS: BASO % 0.6 %; BASO ABS # 0.02 K/uL (0-0.2); COMPLETE YES; IG% 0.3 %; LYMPH % 46.7 %; MEAN PLATELET VOLUME 10.8 fL (7.4-10.4); MONO % 9.3 %; NEUT % 39.1 %; PLATELET COUNT 86 K/uL (130-400)
[2016-07-29 06:14] LABS: ALB/GLOB RATIO 0.9 (0.9-2); BUN/CREATININE RATIO 18.3 (10-20); CALCIUM 8.3 mg/dl (8.5-10.1); CREATININE 0.8 mg/dl (0.60-1.40); POTASSIUM 4.1 mmol/L (3.5-5.1)
[2016-07-29 07:19] VITALS: BP 100/73; PULSE 62; TEMP 36.6; O2SAT 96
[2016-07-29] MEDS: MUPIROCIN 2% OINT 22 GM TUBE EXT SCH (07:37)
[2016-07-29] MEDS: DOXYCYCLINE HYCLATE 100 MG CAP PO SCH (07:37)
--- NOTE | 2016-07-29 07:52 | Discharge Instructions ---
Discharge Instructions Date of Service Jul 29, 2016. Admission Reason for Admission: Neutropenic Fever, Thombocytopenia Discharge Discharge Diagnosis / Problem: Neutropenia and Thrombocytopenia Discharge Goals Goal(s): Diagnostic testing, Prevent Disease Progression Activity Recommendations Activity Limitations: per Instructions/Follow-up section . Instructions / Follow-Up Instructions / Follow-Up You were diagnosed with low white blood cell counts and low platelet counts while in the hospital Upon discharge those had increased but were not at baseline yet. We will book an appointment with your PCP next week in order to recheck your blood counts Please rest and drink plenty of fluids over the next week If you start having fevers, worsening night swetas, or any symptoms that concern you please phone your PCP or come straight to the emergency department Current Hospital Diet Patient's current hospital diet: Regular Diet Discharge Diet Recommended Diet: Regular Diet Pending Studies Studies pending at discharge: no Medical Emergencies . Who to Call and When: Medical Emergencies: If at any time you feel your situation is an emergency, please call 911 immediately. . Non-Emergent Contact Non-Emergency issues call your: Primary Care Provider . . "Provider Documentation" section prepared by Yaya Bey. . VTE Core Measure Inpt VTE Proph given/why not?: SCD's
[2016-07-29 10:07] VITALS: BP 100/73; PULSE 62; TEMP 36.6; O2SAT 96
[2016-07-29 11:39] LABS: CYTOMEGALOVIRUS IGG AB <0.60 U/ML
[2016-07-29] MEDS ORDERED: BCTRO EXT (12:22)
[2016-07-29] MEDS ORDERED: DXY100 PO (12:22)
--- NOTE | 2016-07-29 14:07 | Discharge Summary ---
Discharge Summary Date of Service Jul 29, 2016. (Yaya Bey MD) Discharge Summary Admission Date: Jul 26, 2016 at 03:25 Discharge Date: Jul 29, 2016 Discharge Disposition: Home Principal Diagnosis: Neutropenia and Thrombocytopenia Consultations: Haem/Onc Infectious Disease (Yaya Bey MD) Problems/Secondary Diagnoses: h/o MS hypothyroidism (Cong Chen MD) Medication Reconciliation New Medications: Doxycycline Hyclate (Doxycycline Hyclate) 100 Mg Cap 100 MG PO BID for 10 Days, #20 CAP Mupirocin (Mupirocin) 66 Appln/22 Gm Oint 1 APPLN EXT TID for 7 Days, #15 GM Continued Medications: Esomeprazole Magnesium (Nexium) 40 Mg Capcr 40 MG PO QAM PRN for Indigestion Multivitamins/Minerals (Mvi With Minerals) Tab 1 TAB PO DAILY, TAB Discharge Exam Patient with no acute events overnight Remained asymptomatic and no longer having any neck stiffness or nausea Review of Systems: Constitutional: No fever, No chills, No sweats Respiratory: No cough, No sputum, No wheezing Cardiovascular: No chest pain, No palpitations Abdomen: No pain, No nausea, No vomiting Musculoskeletal: No joint pain, No muscle pain Genitourinary - Male: No dysuria Hematologic / Lymphatic: No abnormal bleeding/bruising, No clotting problems , No swollen lymph nodes, No night sweats (Yaya Bey MD) Hospital Course 56 y/o M with PMH of MS and hypothyroidism presented to the ER with c/o persistent fevers with chills Was found to have WBC count of 1.34 and thrombocytopenia with a platelet count of 65. Was discharged after 5 day hospital stay. Did not find a source of patients neutropenia and thrombocytopenia (likely to either be tickborne or viral in nature). Counts were rising on day of discharge and patient was asymptomatic. Patients was admitted on 07/25/16 and discharged on 07/29/16. Patient is not to go to work until MondayAugust 08. Neutropenic fever: - Day of discharge had WBC of 3.21 and ANC of 1.25 - Blood cultures negative in hospital - Lyme serology, hepatitis influenza, HIV, CMV negative - Ehrlichiosis, anaplasmosis, EBV, parvovirus B19 serology pending at discharge - Patient did receive cefepime 2g Q8 while in hospital and was put on doxycycline - The day after being put on doxycycline his counts slowly started rising - Discharged on 10 days of doxycycline upon discharge to finish a 14 day course and is following up with PCP and ID - Will be getting repeat CBC with differential on Monday Thrombocytopenia with neutropenia: Bone marrow suppression secondary to viral infection vs tick borne infection - Platelet count 86 at discharge Hypothyroidism - Continue Synthroid 50 g GERD: -Continue esomeprazole Total Time Spent: Less than 30 minutes This includes examination of the patient, discharge planning, medication reconciliation, and communication with other providers. (Yaya Bey MD) Attending Discharge note & attestation: Pt seen/examined, chart reviewed, and care plan d/w PGY1 Dr. Yaya Bey. I agree w/ the benton components of his discharge summary. 56yo male with h/o MS & hypothyroidism who presented with a flu-like illness, fever, and leukopenia with thrombocytopenia. Etiology was uncertain but felt to be due to a virus vs a tick-borne illness. Seen by heme/onc and infectious disease both of whom agreed this was infectious in nature and either a viral process or tick-borne disease. He was treated with broad-spectrum IV antibiotics including doxycycline for tickborne coverage. Blood cx's remained negative. His WBC count, neutrophil count, and platelets all improved prior to discharge. He felt well upon release from the hospital with good appetite and no specific complaints. While awaiting tick-borne pathogen titers he will complete a course of doxycycline after discharge. All other antibiotics were discontinued. Repeat cbc within 5 days of discharge was recommended to ensure cell line recovery. Discharge exam - gen - nad, nontoxic, a/o x 3 mouth - no lesions, no thrush heart - RRR, s1, s2 lungs - CTA b/l abd - soft, NT, no HSM ext - no edema skin - infected hair follicle posterior to right ear resolving Ehrlichia, anaplasmosis, EBV, CMV, and parvo titers were pending at discharge. Cong Chen MD (Cong Chen MD) Discharge Instructions Please refer to the electronic Patient Visit Report (Discharge Instructions) for additional information. (Yaya Bey MD) Additional Copies To RV. Beaver MD; Jens Lee MD
[2016-07-31 19:59] LABS: ANAPLASMA PHAGOCYTOPHIL IGG <1:64 (<1:64); ANAPLASMA PHAGOCYTOPHIL IGM <1:20 (<1:20); EHRLICHIA CHAFF IGG AB <1:64 (<1:64); EHRLICHIA CHAFF IGM AB <1:20 (<1:20); EPSTEIN BARR VIR CAPSID IGG >750.00 U/ML; PARVOVIRUS IgG INDEX 6.4 (<0.9); PARVOVIRUS IgM INDEX 0.1 (<0.9)
== END 2016-07-29 12:45 | disposition home or self-care (01) | DRG 866 ==
LOC: C.EDB 21:14 → C.4E 07-26 03:25 → ENRESERV 07-26 03:33 → EDBEDREQ 07-26 03:34
PROVIDERS: ADMIT Family Medicine; ATTEND Internal Medicine
DX: B34.9 Viral infection, unspecified (principal); D61.818 Other pancytopenia; G35 Multiple sclerosis; F17.200 Nicotine dependence, unspecified, uncomplicated; E03.9 Hypothyroidism, unspecified; K21.9 Gastro-esophageal reflux disease without esophagitis

== ENCOUNTER → 2017-05-31 | Outpatient (CLI) | payer OTHER ==
[~2017-05-31] MED LIST changes: +BCTRO EXT; -DIME1CAP2 PO; +DXY100 PO
--- NOTE | 2017-05-31 10:52 | DIAGNOSTIC IMAGING REPORT ---
ULTRASOUND OF THE THYROID GLAND CLINICAL HISTORY: Thyroid nodules. COMPARISON STUDY: Thyroid ultrasound dated 06/05/2012. TECHNIQUE: Real-time, grayscale, and color flow sonography of the thyroid gland is performed utilizing a high-frequency linear transducer. Images are reviewed in the transverse and longitudinal planes. FINDINGS: Right lobe: The right lobe of the thyroid gland is normal in size and heterogeneous in echotexture, measuring 4.0 x 1.9 x 1.7 cm. Left lobe: The left lobe of the thyroid gland is normal in size and heterogeneous in echotexture, measuring 3.9 x 1.3 x 1.4 cm. Isthmus: The thyroid isthmus is normal in appearance and measures 0.3 cm in AP diameter. There is a 0.8 x 0.6 x 0.6 cm solid nodule in the lower pole with a hypoechoic rim (previously measured 0.7 cm). IMPRESSION: 1. The thyroid gland is normal in size and heterogeneous in echotexture. 2. A low suspicion subcentimeter nodule in the left lower pole has not significantly changed from 2013. Electronically signed by: Ankit Dwyer M.D. 05/31/2017 10:50 AM Dictated Date/Time: 05/31/2017 10:40 AM
== END | disposition home or self-care (01) ==
LOC: C.ULTRBC 10:19
PROVIDERS: ATTEND Nurse Practitioner Adult Health
DX: E04.1 Nontoxic single thyroid nodule (principal)